=== PATIENT | male | born 1955 | race Caucasian/White ===

== ENCOUNTER 2024-11-19 11:37 | Emergency (ER) | payer OTHER, SELFPAY ==
[2024-11-19 11:47] VITALS: BP 138/73; PULSE 55; RESP 16; TEMP 36.6; O2SAT 99
--- NOTE | 2024-11-19 11:58 | ED.BACK ---
HPI - Back Pain/Injury General Chief Complaint: Back Pain/Injury Stated Complaint: middle of back pain Time Seen by Provider: 11/19/24 12:07 Source: patient and RN notes reviewed Mode of arrival: ambulatory Limitations: no limitations History of Present Illness HPI Narrative: 68-year-old male presents with concern for mid back pain. Reports this started 2 to 3 weeks ago and he has been taking [id number] pain reliever which temporarily makes the pain go away. Reports he can find a position comfort but certain movements or activities cause pain. He denies any direct injury or trauma. Reports he did have some increased activity including lifting up a motorcycle recently. He reports history of sciatic pain, he also had a crush injury 20 years ago that cause some nerve damage in his right lower extremity. He denies any change in weakness, sensation in his lower extremities. He denies loss of bowel or bladder function, perianal anesthesia, fever, he dysuria, frequency, urgency. Denies rash. MD elicited complaint: back pain Related Data Home Medications ?Medication ?Instructions ?Recorded ?Confirmed ?Last Taken ?Type aspirin 81 mg tablet,delayed 81 mg PO DAILY 09/23/19 11/19/24 Unknown History release (Kevin Low Dose Aspirin) atorvastatin 80 mg tablet 80 mg PO DAILY 09/23/19 11/19/24 Unknown History isosorbide mononitrate 30 mg 30 mg PO DAILY 09/23/19 11/19/24 Unknown History tablet,extended release 24 hr omeprazole 20 mg tablet,delayed 20 mg PO DAILY 09/23/19 11/19/24 Unknown History release Miralax 11/19/24 Unknown History levothyroxine 137 mcg tablet mcg 11/19/24 Unknown History rivaroxaban 2.5 mg tablet (Xarelto) mg 11/19/24 Unknown History Allergies Allergy/AdvReac Type Severity Reaction Status Date / Time Sulfa (Sulfonamide Allergy Unknown Unknown Verified 11/19/24 11:45 Antibiotics) Review of Systems Review of Systems: CONSTITUTIONAL: Denies malaise, chills, sweats, or fever. CARDIOVASCULAR: Denies chest pain, palpitations, or edema. RESPIRATORY: Denies cough or dyspnea. GASTROINTESTINAL: Denies abdominal pain, nausea, vomiting, diarrhea, loss of bowel function GENITOURINARY: Denies dysuria, hematuria, frequency, loss of bladder function. SKIN: Denies rash or itching. MUSCULOSKELETAL: Reports mid back pain NEUROLOGIC: Denies numbness, weakness, or headache. All systems reviewed & are unremarkable except as noted in HPI and below PMFSH Social History Social History (Updated 09/23/19 @ 10:49 by Ceci Rojas, VETERINARY ASSISTANT TECHNICIAN) Smoking status: Never smoker Comments At time of signature, agree with nursing past medical, surgical, social and family history. There is no relevant family history pertinent to the presenting complaint Exam Narrative: GENERAL: Well-appearing, well-nourished, and in no acute distress. HEAD: Normocephalic, atraumatic. EYES: PERRLA and EOMI. NECK: Supple. No lymphadenopathy. CHEST: Clear to auscultation. No respiratory distress. HEART: Regular rate and rhythm. Distal pulses palpable and equal, cap refill <3 seconds ABDOMEN: Soft, nontender, nondistended, normal active bowel sounds, no palpable or pulsatile masses. No CVA tenderness MUSCULOSKELETAL: Normal range of motion and strength in all extremities; 5/5 strength with hip flexion and extension, dorsiflexion and extension, knee flexion and extension, plantar flexion and extension. Baseline sensation in dermatomal distributions with sensitivity to light touch and pain. No midline back tenderness to palpation. No paraspinal tenderness. Transfers from sitting to standing. SKIN: Warm, dry, no rash. No ecchymosis, erythema, open wounds to back. NEURO: No focal deficits. Alert and oriented x3. Normal gait. PSYCH: Normal mood and affect Course Course Emergency Course: Patient is aware of diagnosis, understands and agrees to treatment plan. Anticipatory guidance given. Patient agrees to follow-up as directed and is aware of reasons to seek care at the emergency department. Portions of this record may have been created with voice recognition software Level of Care: Express Care Visit Vital Signs Vital signs: Vital Signs Temperature 97.9 F 11/19/24 11:47 Pulse Rate 55 L 11/19/24 11:47 Respiratory Rate 16 11/19/24 11:47 Blood Pressure 138/73 11/19/24 11:47 Pulse Oximetry 99 11/19/24 11:47 Oxygen Delivery Room Air 11/19/24 11:47 Temperature 97.9 F 11/19/24 11:47 Pulse Rate 55 L 11/19/24 11:47 Respiratory Rate 16 03/14/25 11:47 Blood Pressure 138/73 11/19/24 11:47 Pulse Oximetry 99 11/19/24 11:47 Oxygen Delivery Room Air 11/19/24 11:47 Reviewed. MDM - Back Pain/Injury MDM Narrative Medical decision making narrative: I evaluated this in the express care. History is obtained from patient who is an independent historian and physical exam was performed.? Available medical records were reviewed. ? Exam findings and relevant testing show no acute concerns or changes; patient is non-toxic appearing and is in no distress. No risk factors or findings concerning for epidural abscess, diskitis, vertebral osteomyelitis, cord compression, cauda equina, vertebral fracture or bone malignancy, AAA, or pyelonephritis. Patient instructed to consider further imaging and workup through their primary care physician as an outpatient if symptoms persist. ? Differential diagnosis and treatment plan were discussed with the patient. Patient agrees with discussion and after shared medical decision making agrees with plan of care. All questions were answered to the patient's satisfaction. Patient is appropriate for outpatient treatment and follow-up. Critical Care Time Critical Care Time Critical Care Time: No Discharge Plan Discharge Clinical Impression: Back pain Patient Disposition: Home, Self-Care Condition: Stable Instructions: Back Pain (ED) Additional Instructions: Please follow up with your Primary Care Doctor within 48-72 hours - call for an appointment. Walking and other gentle exercising several times a week has been shown to improve back pain; bed rest is not recommended. Take prednisone as prescribed, take muscle relaxers every 8 hours as needed for muscle spasm- do not drive or make any important decisions while on this medication for it can make you drowsy. You may apply ice to the area as needed. If you experience any worsening pain, swelling, numbness, weakness please go to ER. Contact your doctor or go to the emergency department if you develop problems with bladder or bowel function, weakness or loss of feeling in one or both of your legs, or any other serious concerns. Patient Language: Senegalese Prescriptions: New cyclobenzaprine 10 mg tablet 10 mg PO TID PRN (Reason: muscle spasm) Qty: 20 0RF prednisone 20 mg tablet 40 mg PO DAILY 5 Days Qty: 10 0RF No Action atorvastatin 80 mg Tablet 80 mg PO DAILY isosorbide mononitrate 30 mg Tablet Extended Release 24 Hr 30 mg PO DAILY aspirin [Kevin Low Dose Aspirin] 81 mg Tablet,Delayed Release (Dr/Ec) 81 mg PO DAILY omeprazole 20 mg Tablet,Delayed Release (Dr/Ec) 20 mg PO DAILY hydrocodone-acetaminophen [[place]] 5-325 mg tablet 1 tablet PO Q4H PRN (Reason: pain) Qty: 12 0RF levothyroxine 137 mcg tablet Xarelto 2.5 mg tablet Miralax Follow-up/Referrals: PHYSICIAN NOT ON STAFF,NONSTAFF [Primary Care Provider] -
--- OUTSIDE RECORDS SUMMARY | 2024-11-19 12:14 | XMS_ITS | Encounter Summary ---
Author Organization [email or web address] Address 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 Gender Identity Not on file Sexual Orientation Not on file documented as of this encounter Plan of Treatment Not on file documented as of this encounter Procedures Procedure Name Priority Date/Time Associated Diagnosis Comments CT ABDOMEN PELVIS WO CONTRAST Routine 10/06/2007 3:24 PM COLLECTOR OF AQUARIUM SPECIMENS documented in this encounter Results * CT ABDOMEN PELVIS WO CONTRAST (10/06/2007 3:24 PM COLLECTOR OF AQUARIUM SPECIMENS) Anatomical Region Laterality Modality Abdomen Other 10/06/2007 3:24 PM COLLECTOR OF AQUARIUM SPECIMENS Narrative 10/06/2007 3:53 PM COLLECTOR OF AQUARIUM SPECIMENS [address] [address] Admit Date: 10/06/2007 TRISTA HENRY Mary Sex: M Admit Prov: NASREEN VILLANUEVA Date: 1955 Primary Care Prov: CMRN: [id number] Room: [facility] SSN: [id number] IMAGING SERVICES Ordering Prov: N/A Accession Number: [id number] Interpretation CT abdomen and pelvis without contrast and 10/06/2007 History: Renal calculus Technique: Contiguous 5 mm unenhanced images were obtained through the abdomen and pelvis Findings: A punctate nonobstructive calculus in the upper pole of the left kidney is seen. There is a 7 mm nonobstructive calculus in the lower pole of the right kidney . A small exophytic lesion is seen from the lateral cortex of the right kidney which is isointense to the renal cortex. It probably represents a cyst with mild hemorrhage. The liver, spleen, pancreas and adrenal glands have unremarkable unenhanced appearance. No ureteral dilatation or calculus is seen. No bladder calculus is identified. There is no bowel obstruction. No intraperitoneal free fluid or free air is seen. No retroperitoneal lymphadenopathy is visualized. An IVC filter is noted. Remote pelvic fractures are noted with orthopedic hardware. Impression: 1. Bilateral nonobstructive renal calculi, larger on the right. 2. Small exophytic lesion from the right kidney. Further evaluation with ultrasound is recommended. . Dictated by: ANNETTE ORLANDO 10/06/2007 15:50 Electronically signed by: ANNETTE ORLANDO 10/06/2007 15:53 Procedure Note Annette Orlando - 10/07/2007 [facility] [address], [place] [address] Admit Date: 10/06/2007 HENRY PINO Sex: M Admit Prov: NASREEN VILLANUEVA Date: 1955 Primary Care Prov: CMRN: [id number] Room: [facility] SSN: [id number] IMAGING SERVICES Ordering Prov: N/A Interpretation CT abdomen and pelvis without contrast and 10/06/2007 History: Renal calculus Technique: Contiguous 5 mm unenhanced images were obtained throughthe abdomen and pelvis Findings: A punctate nonobstructive calculus in the upper pole of theleft kidney is seen. There is a 7 mm nonobstructive calculus in the lowerpole of the right kidney . A small exophytic lesion is seen from thelateral cortex of the right kidney which is isointense to the renal cortex.It probably represents a cyst with mild hemorrhage. The liver, spleen, pancreas and adrenal glands have unremarkable unenhanced appearance.No ureteral dilatation or calculus is seen. No bladder calculus isidentified. There is no bowel obstruction. No intraperitoneal free fluid or freeair is seen. No retroperitoneal lymphadenopathy is visualized. An IVC filteris noted. Remote pelvic fractures are noted with orthopedic hardware. Impression: 1. Bilateral nonobstructive renal calculi, larger on the right. 2. Small exophytic lesion from the right kidney. Further evaluationwith ultrasound is recommended. . Dictated by: ANNETTE ORLANDO 10/06/2007 15:50 Electronically signed by: ANNETTE ORLANDO 10/06/2007 15:53 us Nasreen Villanueva MD CT ORDERABLES Final Resu lt documented in this encounter Visit Diagnoses Diagnosis Calculus of kidney Unspecified disorder of kidney and ureter documented in this encounter Care Teams Air Quality Manager Relationship Specialty Start Date End Date Adriana Matamoros MD [address] [place] [id number] PCP - General 08/21/06 documented as of this encounter
--- OUTSIDE RECORDS SUMMARY | 2024-11-19 12:14 | XMS_ITS | Encounter Summary ---
Author Organization [employer] [facility] Address [address] [place] [address] Care Team Providers Care Fac Engineer Name Role Phone Adriana Matamoros MD Primary Care Provider [phone] Encounter Details Date Type Department Care Team (Late st Contact Info) Description 09/10/2005 Outpatient Historical [facility] [address] [place] [address] [place] [address] Adriana Matamoros MD [address] [place] [address] Social History Tobacco Use Types Packs/Day Years Used Date Smoking Tobacco: Never Assessed Sex and Gender Information Value Date Recorded Sex Assigned at Not on file 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
--- OUTSIDE RECORDS SUMMARY | 2024-11-19 12:14 | XMS_ITS | Encounter Summary ---
Author Organization [facility] Address 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
--- OUTSIDE RECORDS SUMMARY | 2024-11-19 12:14 | XMS_ITS | Encounter Summary ---
Author Organization [facility] Address [address] [place] [address] Phone Care Team Providers Care Professor Of Education Name Role Phone Amy Ojeda APRN, UNCRATER Unavailable Simón Tate MD Primary Care Provider [phone] Encounter Details Date Type Department Care Team (Late st Contact Info) Description 11/04/2024 Results Follow-Up [facility] - Gastroenterology - [place] [address] [place] [address] Amy Ojeda APRN, UNCRATER [address] [place] [address] Social History Tobacco Use Types Packs/Day Years Used Date Smoking Tobacco: Never Smokeless Tobacco: Never Alcohol Use Standard Drinks/Week Comments No 0 (1 standard drink = 0.6 oz pur e alcohol) Sex and Gender Information Value Date Recorded Sex Assigned at Not on file Legal Sex Male 12:34 AM CDT Gender Identity Not on file Sexual Orientation Not on file documented as of this encounter Plan of Treatment Not on file documented as of this encounter Visit Diagnoses Not on filedocumented in this encounter Care Teams Professor Of Education Relationship Specialty Start Date End Date Simón [place] [address] [place] [address] PCP - General Family Medicine 02/17/24 Amy Ojeda APRN, [place]CRATER [address] [place] [address] Nurse Practitioner Advanced Practice Nurse 12/02/23 documented as of this encounter
--- OUTSIDE RECORDS SUMMARY | 2024-11-19 12:14 | XMS_ITS | Encounter Summary ---
Author Organization [facility] Address 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
--- OUTSIDE RECORDS SUMMARY | 2024-11-19 12:14 | XMS_ITS | Clinical Summary ---
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 [address] [place] [address] PCP - General 08/21/06
--- OUTSIDE RECORDS SUMMARY | 2024-11-19 12:14 | XMS_ITS | Encounter Summary ---
Author Organization [employer] Address [address] [place] [address] Care Team Providers Care Plastic Roller Name Role Phone Adriana Matamoros MD Primary Care Provider [phone] Encounter Details Date Type Department Care Team (Latest Contact Info) Description 10/19/2004 Inpatient Historical HIS PATIENT IN A BED Adriana Matamoros MD [address] [place] [address] REHABILITATION PROC NEC (Primary Dx) Social History Tobacco Use Types Packs/Day Years Used Date Smoking Tobacco: Never Assessed Sex and Gender Information Value Date Recorded Sex Assigned at Not on file Legal Sex Male 3:48 AM LOSS PREVENTION MANAGER Gender Identity Not on file Sexual Orientation Not on file documented as of this encounter Plan of Treatment Not on file documented as of this encounter Procedures Procedure Name Priority Date/Time Associated Diagnosis Comments PROTIME-INR Routine 11/18/2004 4:30 AM LOSS PREVENTION MANAGER PROTIME-INR Routine 11/16/2004 5:05 AM LOSS PREVENTION MANAGER CBC WITH DIFFERENTIAL Routine 11/15/2004 5:37 AM LOSS PREVENTION MANAGER CBC WITH DIFFERENTIAL Routine 11/15/2004 5:37 AM LOSS PREVENTION MANAGER BASIC METABOLIC PANEL Routine 11/15/2004 5:37 AM LOSS PREVENTION MANAGER CBC WITH DIFFERENTIAL Routine 11/07/2004 5:00 AM LOSS PREVENTION MANAGER CBC WITH DIFFERENTIAL Routine 11/07/2004 5:00 AM LOSS PREVENTION MANAGER BASIC METABOLIC PANEL Routine 11/07/2004 5:00 AM LOSS PREVENTION MANAGER CBC WITH DIFFERENTIAL Routine 10/29/2004 4:26 AM LOSS PREVENTION MANAGER CBC WITH DIFFERENTIAL Routine 10/29/2004 4:26 AM LOSS PREVENTION MANAGER BASIC METABOLIC PANEL Routine 10/29/2004 4:26 AM LOSS PREVENTION MANAGER OCCULT BLOOD GUAIAC DIAGNOSTIC Routine 10/27/2004 9:33 AM LOSS PREVENTION MANAGER OCCULT BLOOD GUAIAC DIAGNOSTIC Routine 10/26/2004 5:53 PM LOSS PREVENTION MANAGER HEMOGLOBIN AND HEMATOCRIT Routine 10/25/2004 11:30 AM LOSS PREVENTION MANAGER IRON, TIBC, AND PERCENT SATURATION Routine 10/25/2004 11:30 AM LOSS PREVENTION MANAGER FOLATE RBC AND HEMATOCRIT Routine 10/25/2004 11:30 AM LOSS PREVENTION MANAGER VITAMIN B12 LEVEL Routine 10/25/2004 11: 30 AM LOSS PREVENTION MANAGER OCCULT BLOOD GUAIAC DIAGNOSTIC Routine 10/24/2004 10:30 PM LOSS PREVENTION MANAGER CBC WITH DIFFERENTIAL Routine 10/24/2004 4:40 AM LOSS PREVENTION MANAGER CBC WITH DIFFERENTIAL Routine 10/24/2004 4:40 AM LOSS PREVENTION MANAGER CBC WITH DIFFERENTIAL Routine 10/23/2004 5:00 AM LOSS PREVENTION MANAGER CBC WITH DIFFERENTIAL Routine 10/23/2004 5:00 AM LOSS PREVENTION MANAGER BASIC METABOLIC PANEL Routine 10/23/2004 5:00 AM LOSS PREVENTION MANAGER CBC WITH DIFFERENTIAL Routine 10/19/2004 4:00 PM LOSS PREVENTION MANAGER CBC WITH DIFFERENTIAL Routine 10/19/2004 4:00 PM LOSS PREVENTION MANAGER C-REACTIVE PROTEIN Routine 10/19/2004 4: 00 PM LOSS PREVENTION MANAGER COMPREHENSIVE METABOLIC PANEL Routine 10/19/2004 4:00 PM LOSS PREVENTION MANAGER URINALYSIS W/REFLEX MICROSCOPIC Routine 10/19/2004 2:32 PM LOSS PREVENTION MANAGER documented in this encounter Results * (ABNORMAL) PROTIME-INR (11/18/2004 4:30 AM LOSS PREVENTION MANAGER) PROTIME 16.4(H) 12.9 - 15.7 Seconds INTERFACE SYSTEM INR 1.2(H) 0.9 - 1.1 INTERFACE SYSTEM Comment: INR Therapeutic Range: Adult: 2.0 - 3.0 for pulmonary embolism or prophylaxis against venous thrombosis or systemic embolization. 2.0 - 3.0 for patients with tissue heart valves. 3.0 - 4.5 for patients with mechanical heart valves. Pediatric (12 years and under): 1.5 - 3.0 Although the target range in children is not well established, INR values of 1.5 - 3.0 are recommended for most patients. Higher values have been used in children with prosthetic cardiac valves and hereditary clotting disorders. (<3 days) therapeutic ranges have not been established. 11/18/2004 4:30 AM LOSS PREVENTION MANAGER us Adriana Matamoros MD HEMATOLOGY ORDERABLES Final R esult INTERFACE SYSTEM Refer to clinic/hospital department * PROTIME-INR (11/16/2004 5:05 AM LOSS PREVENTION MANAGER) PROTIME 14.8 12.9 - 15.7 Seconds INTERFACE SYSTEM INR 1.1 0.9 - 1.1 INTERFACE SYSTEM Comment: INR Therapeutic Range: Adult: 2.0 - 3.0 for pulmonary embolism or prophylaxis against venous thrombosis or systemic embolization. 2.0 - 3.0 for patients with tissue heart valves. 3.0 - 4.5 for patients with mechanical heart valves. Pediatric (12 years and under): 1.5 - 3.0 Although the target range in children is not well established, INR values of 1.5 - 3.0 are recommended for most patients. Higher values have been used in children with prosthetic cardiac valves and hereditary clotting disorders. (<3 days) therapeutic ranges have not been established. 11/16/2004 5:05 AM LOSS PREVENTION MANAGER Adriana Matamoros MD HEMATOLOGY ORDERABLES Final R [facility] Performing Organization Address [facility] Phone Number INTERFACE SYSTEM Refer to clinic/hospital department * CBC WITH DIFFERENTIAL (11/15/2004 5:37 AM LOSS PREVENTION MANAGER) NEUTROPHILS 68 45 - 70 % INTERFAC E SYSTEM LYMPHOCYTES 20 16 - 45 % INTERFAC E SYSTEM MONOCYTES 9 3 - 13 % INTERFACE SYSTEM EOSINOPHILS 3 0 - 7 % INTERFAC E SYSTEM BASOPHILS 1 0 - 2 % INTERFACE SYSTEM NEUTROPHIL ABSOLUTE 4.30 1.90 - 7.00 K/uL INTERFACE SYSTEM LYMPHOCYTE ABSOLUTE 1.25 0.70 - 4.50 K/uL INTERFACE SYSTEM MONOCYTE ABSOLUTE 0.58 0.10 - 1.30 K/uL INTERFACE SYSTEM EOSINOPHIL ABSOLUTE 0.16 0.00 - 0.70 K/uL INTERFACE SYSTEM BASOPHILS ABSOLUTE 0.03 0.00 - 0.20 K/uL INTERFACE SYSTEM 11/15/2004 5:37 AM LOSS PREVENTION MANAGER Adriana Matamoros MD HEMATOLOGY ORDERABLES Final R [facility] Performing Organization Address [facility] Phone Number INTERFACE SYSTEM Refer to clinic/hospital department * (ABNORMAL) CBC WITH DIFFERENTIAL (11/15/2004 5:37 AM LOSS PREVENTION MANAGER) WBC 6.3 4.0 - 9.8 K/uL INTERFACE SYSTEM RBC 3.60(L) 4.50 - 5.40 M/uL INTERFACE SYSTEM HEMOGLOBIN 10.2(L) 13.6 - 16.5 g/dL INTERFACE SYSTEM HEMATOCRIT 32.8(L) 40.0 - 48.0 % INTERFACE SYSTEM MCV 91.1 82.0 - 99.0 fL INTERFACE SYSTEM MCH 28.3 27.2 - 32.6 pg INTERFACE SYSTEM MCHC 31.1(L) 31.5 - 35.5 % INTERFACE SYSTEM RDW 14.8(H) 11.5 - 14.5 % INTERFACE SYSTEM RDW-STDEV 49.6(H) 37.1 - 48.7 fL INTERFACE SYSTEM PLATELETS 214 140 - 350 K/uL INTERFACE SYSTEM MPV 9.0(L) 9.3 - 12.4 fL INTERFACE SYSTEM 11/15/2004 5:37 AM LOSS PREVENTION MANAGER Adriana Matamoros MD HEMATOLOGY ORDERABLES Final R esult Performing Organization Address [facility] de Phone Number INTERFACE SYSTEM Refer to clinic/hospital department * BASIC METABOLIC PANEL (11/15/2004 5:37 AM LOSS PREVENTION MANAGER) GLUCOSE 105 65 - 109 mg/dL INTERFACE SYSTEM CREATININE 0.8 0.5 - 1.3 mg/dL INTERFACE SYSTEM CALCIUM 9.0 8.6 - 10.2 mg/dL INTERFACE SYSTEM BUN 13 6 - 20 mg/dL INTERFACE SYSTEM SODIUM 135 135 - 145 mmol/L INTERFACE SYSTEM POTASSIUM 3.9 3.5 - 4.9 mmol/L INTERFACE SYSTEM CHLORIDE 100 96 - 108 mmol/L INTERFACE SYSTEM CO2 28 22 - 30 mmol/L INTERFACE SYSTEM 11/15/2004 5:37 AM LOSS PREVENTION MANAGER Adriana Matamoros MD CHEMISTRY ORDERABLES Final Re sult Performing Organization Address [facility] Phone Number INTERFACE SYSTEM Refer to clinic/hospital department * CBC WITH DIFFERENTIAL (11/07/2004 5:00 AM LOSS PREVENTION MANAGER) NEUTROPHILS 56 45 - 70 % INTERFAC E SYSTEM LYMPHOCYTES 30 16 - 45 % INTERFAC E SYSTEM MONOCYTES 10 3 - 13 % INTERFACE SYSTEM EOSINOPHILS 3 0 - 7 % INTERFAC E SYSTEM BASOPHILS 1 0 - 2 % INTERFACE SYSTEM NEUTROPHIL ABSOLUTE 2.36 1.90 - 7.00 K/uL INTERFACE SYSTEM LYMPHOCYTE ABSOLUTE 1.29 0.70 - 4.50 K/uL INTERFACE SYSTEM MONOCYTE ABSOLUTE 0.44 0.10 - 1.30 K/uL INTERFACE SYSTEM EOSINOPHIL ABSOLUTE 0.12 0.00 - 0.70 K/uL INTERFACE SYSTEM BASOPHILS ABSOLUTE 0.04 0.00 - 0.20 K/uL INTERFACE SYSTEM 11/07/2004 5:00 AM LOSS PREVENTION MANAGER Adriana Matamoros MD HEMATOLOGY ORDERABLES Final R esult Performing Organization Address [facility] Phone Number INTERFACE SYSTEM Refer to clinic/hospital department * (ABNORMAL) CBC WITH DIFFERENTIAL (11/07/2004 5:00 AM LOSS PREVENTION MANAGER) WBC 4.3 4.0 - 9.8 K/uL INTERFACE SYSTEM RBC 3.69(L) 4.50 - 5.40 M/uL INTERFACE SYSTEM HEMOGLOBIN 10.5(L) 13.6 - 16.5 g/dL INTERFACE SYSTEM HEMATOCRIT 34.5(L) 40.0 - 48.0 % INTERFACE SYSTEM MCV 93.5 82.0 - 99.0 fL INTERFACE SYSTEM MCH 28.5 27.2 - 32.6 pg INTERFACE SYSTEM MCHC 30.4(L) 31.5 - 35.5 % INTERFACE SYSTEM RDW 15.2(H) 11.5 - 14.5 % INTERFACE SYSTEM RDW-STDEV 52.0(H) 37.1 - 48.7 fL INTERFACE SYSTEM PLATELETS 275 140 - 350 K/uL INTERFACE SYSTEM MPV 8.9(L) 9.3 - 12.4 fL INTERFACE SYSTEM 11/07/2004 5:00 AM LOSS PREVENTION MANAGER Adriana Matamoros MD HEMATOLOGY ORDERABLES Final R esult Performing Organization Address [facility] Phone Number INTERFACE SYSTEM Refer to clinic/hospital department * BASIC METABOLIC PANEL (11/07/2004 5:00 AM LOSS PREVENTION MANAGER) GLUCOSE 96 65 - 109 mg/dL INTERFACE SYSTEM CREATININE 0.9 0.5 - 1.3 mg/dL INTERFACE SYSTEM CALCIUM 9.1 8.6 - 10.2 mg/dL INTERFACE SYSTEM BUN 16 6 - 20 mg/dL INTERFACE SYSTEM SODIUM 140 135 - 145 mmol/L INTERFACE SYSTEM POTASSIUM 4.3 3.5 - 4.9 mmol/L INTERFACE SYSTEM CHLORIDE 102 96 - 108 mmol/L INTERFACE SYSTEM CO2 28 22 - 30 mmol/L INTERFACE SYSTEM 11/07/2004 5:00 AM LOSS PREVENTION MANAGER us Adriana Matamoros MD CHEMISTRY ORDERABLES Final Re sult Performing Organization Address [facility] Phone Number INTERFACE SYSTEM Refer to clinic/hospital department * CBC WITH DIFFERENTIAL (10/29/2004 4:26 AM LOSS PREVENTION MANAGER) Pathologist [facility] NEUTROPHILS 65 45 - 70 % INTERFAC E SYSTEM LYMPHOCYTES 24 16 - 45 % INTERFAC E SYSTEM MONOCYTES 8 3 - 13 % INTERFACE SYSTEM EOSINOPHILS 3 0 - 7 % INTERFAC E SYSTEM BASOPHILS 1 0 - 2 % INTERFACE SYSTEM NEUTROPHIL ABSOLUTE 4.17 1.90 - 7.00 K/uL INTERFACE SYSTEM LYMPHOCYTE ABSOLUTE 1.54 0.70 - 4.50 K/uL INTERFACE SYSTEM MONOCYTE ABSOLUTE 0.51 0.10 - 1.30 K/uL INTERFACE SYSTEM EOSINOPHIL ABSOLUTE 0.20 0.00 - 0.70 K/uL INTERFACE SYSTEM BASOPHILS ABSOLUTE 0.03 0.00 - 0.20 K/uL INTERFACE SYSTEM 10/29/2004 4:26 AM LOSS PREVENTION MANAGER us Adriana Matamoros MD HEMATOLOGY ORDERABLES Final R esult Performing Organization Address [facility] Phone Number INTERFACE SYSTEM Refer to clinic/hospital department * (ABNORMAL) CBC WITH DIFFERENTIAL (10/29/2004 4:26 AM LOSS PREVENTION MANAGER) Pathologist [facility] WBC 6.5 4.0 - 9.8 K/uL INTERFACE SYSTEM RBC 3.42(L) 4.50 - 5.40 M/uL INTERFACE SYSTEM HEMOGLOBIN 9.7(L) 13.6 - 16.5 g/dL INTERFACE SYSTEM HEMATOCRIT 31.6(L) 40.0 - 48.0 % INTERFACE SYSTEM MCV 92.4 82.0 - 99.0 fL INTERFACE SYSTEM MCH 28.4 27.2 - 32.6 pg INTERFACE SYSTEM MCHC 30.7(L) 31.5 - 35.5 % INTERFACE SYSTEM RDW 14.7(H) 11.5 - 14.5 % INTERFACE SYSTEM RDW-STDEV 49.5(H) 37.1 - 48.7 fL INTERFACE SYSTEM PLATELETS 389(H) 140 - 350 K/uL INTERFACE SYSTEM MPV 8.5(L) 9.3 - 12.4 fL INTERFACE SYSTEM 10/29/2004 4:26 AM LOSS PREVENTION MANAGER us Adriana Matamoros MD HEMATOLOGY ORDERABLES Final R esult Performing Organization Address [facility] de Phone Number INTERFACE SYSTEM Refer to clinic/hospital department * BASIC METABOLIC PANEL (10/29/2004 4:26 AM LOSS PREVENTION MANAGER) GLUCOSE 97 65 - 109 mg/dL INTERFACE SYSTEM CREATININE 0.7 0.5 - 1.3 mg/dL INTERFACE SYSTEM CALCIUM 9.0 8.6 - 10.2 mg/dL INTERFACE SYSTEM BUN 18 6 - 20 mg/dL INTERFACE SYSTEM SODIUM 136 135 - 145 mmol/L INTERFACE SYSTEM POTASSIUM 4.1 3.5 - 4.9 mmol/L INTERFACE SYSTEM CHLORIDE 100 96 - 108 mmol/L INTERFACE SYSTEM CO2 28 22 - 30 mmol/L INTERFACE SYSTEM 10/29/2004 4:26 AM LOSS PREVENTION MANAGER Result Vince Matamoros MD CHEMISTRY ORDERABLES Final Re sult Performing Organization Address [facility] Phone Number INTERFACE SYSTEM Refer to clinic/hospital department * OCCULT BLOOD, STOOL (10/27/2004 9:33 AM LOSS PREVENTION MANAGER) OCCULT BLOOD, STOOL Negative Negative INTERFACE SYSTEM 10/27/2004 9:33 AM LOSS PREVENTION MANAGER Result Vince Matamoros MD BODY FLUIDS AND STOOLS Final Result Performing Organization Address [facility] Phone Number INTERFACE SYSTEM Refer to clinic/hospital department * OCCULT BLOOD, STOOL (10/26/2004 5:53 PM LOSS PREVENTION MANAGER) OCCULT BLOOD, STOOL Negative Negative INTERFACE SYSTEM 10/26/2004 5:53 PM LOSS PREVENTION MANAGER Result Vince Matamoros MD BODY FLUIDS AND STOOLS Final Result Performing Organization Address [facility] Phone Number INTERFACE SYSTEM Refer to clinic/hospital department * (ABNORMAL) FOLATE RBC AND HEMATOCRIT (10/25/2004 11:30 AM LOSS PREVENTION MANAGER) HEMATOCRIT, FOLATE 30.3(L) 40.0 - 48.0 % INTERFACE SYSTEM RBC FOLATE 1095 >=341 ng/mL INTERFACE SYSTEM 10/25/2004 11:3 0 AM LOSS PREVENTION MANAGER Result Vince Matamoros MD CHEMISTRY ORDERABLES Final Re sult Performing Organization Address [facility] Phone Number INTERFACE SYSTEM Refer to clinic/hospital department * VITAMIN B12 (10/25/2004 11:30 AM LOSS PREVENTION MANAGER) VITAMIN B12 763 243 - 894 pg/mL INTERFACE SYSTEM Comment: It has been reported that between 5 to 10% of patients with values between 200 and 400 pg/mL may experience neuropsychiatric and hematologic abnormalities due to occult B12 deficiency. Less than 1% of patients with values above 400 pg/mL will have symptoms. 10/25/2004 11:3 0 AM LOSS PREVENTION MANAGER Adriana Matamoros MD CHEMISTRY ORDERABLES Final Re sult Performing Organization Address [facility] Phone [facility] INTERFACE SYSTEM Refer to clinic/hospital department * (ABNORMAL) HEMOGLOBIN AND HEMATOCRIT (10/25/2004 11:30 AM LOSS PREVENTION MANAGER) HEMOGLOBIN 9.3(L) 13.6 - 16.5 g/dL INTERFACE SYSTEM HEMATOCRIT 30.3(L) 40.0 - 48.0 % INTERFACE SYSTEM 10/25/2004 11:3 0 AM LOSS PREVENTION MANAGER Adriana Matamoros MD HEMATOLOGY ORDERABLES Final R esult Performing Organization Address [facility] Phone Number INTERFACE SYSTEM Refer to clinic/hospital department * (ABNORMAL) IRON AND TIBC (10/25/2004 11:30 AM LOSS PREVENTION MANAGER) IRON 50 45 - 160 ug/dL INTERFACE SYSTEM IRON % SATURATION 17(L) 20 - 50 % INTERFACE SYSTEM TIBC 286 250 - 450 ug/dL INTERFACE SYSTEM 10/25/2004 11:3 0 AM LOSS PREVENTION MANAGER Adriana Matamoros MD CHEMISTRY ORDERABLES Final Re sult Performing Organization Address [facility] Phone Number INTERFACE SYSTEM Refer to clinic/hospital department * OCCULT BLOOD, STOOL (10/24/2004 10:30 PM LOSS PREVENTION MANAGER) OCCULT BLOOD, STOOL Negative Negative INTERFACE SYSTEM 10/24/2004 10:3 0 PM LOSS PREVENTION MANAGER Adriana Matamoros MD BODY FLUIDS AND STOOLS Final Result Performing Organization Address [facility] de Phone Number INTERFACE SYSTEM Refer to clinic/hospital department * (ABNORMAL) CBC WITH DIFFERENTIAL (10/24/2004 4:40 AM LOSS PREVENTION MANAGER) NEUTROPHIL ABSOLUTE 6.69 1.90 - 7.00 K/uL INTERFACE SYSTEM LYMPHOCYTE ABSOLUTE 0.46(L) 0.70 - 4.50 K/uL INTERFACE SYSTEM MONOCYTE ABSOLUTE 0.38 0.10 - 1.30 K/uL INTERFACE SYSTEM EOSINOPHIL ABSOLUTE 0.08 0.00 - 0.70 K/uL INTERFACE SYSTEM BASOPHILS ABSOLUTE 0.00 0.00 - 0.20 K/uL INTERFACE SYSTEM NEUTROPHILS, SEG 88(H) 45 - 70 % INT ERFACE SYSTEM LYMPHOCYTES 6(L) 16 - 45 % INTERFAC E SYSTEM MONOCYTES 5 3 - 13 % INTERFACE SYSTEM EOSINOPHILS 1 0 - 7 % INTERFAC E SYSTEM BASOPHILS 0 0 - 2 % INTERFACE SYSTEM PLATELET EST. Slt. Increased( A) Normal INTERFACE SYSTEM ANISOCYTOSIS Slight INTERFA CE SYSTEM POIKILOCYTES Slight INTERFA CE SYSTEM 10/24/2004 4:40 AM LOSS PREVENTION MANAGER Adriana Matamoros MD HEMATOLOGY ORDERABLES Final R esult Performing Organization Address [facility] Phone Number INTERFACE SYSTEM Refer to clinic/hospital department * (ABNORMAL) CBC WITH DIFFERENTIAL (10/24/2004 4:40 AM LOSS PREVENTION MANAGER) WBC 7.6 4.0 - 9.8 K/uL INTERFACE SYSTEM RBC 3.10(L) 4.50 - 5.40 M/uL INTERFACE SYSTEM HEMOGLOBIN 8.7(L) 13.6 - 16.5 g/dL INTERFACE SYSTEM HEMATOCRIT 28.2(L) 40.0 - 48.0 % INTERFACE SYSTEM MCV 91.0 82.0 - 99.0 fL INTERFACE SYSTEM MCH 28.1 27.2 - 32.6 pg INTERFACE SYSTEM MCHC 30.9(L) 31.5 - 35.5 % INTERFACE SYSTEM RDW 13.9 11.5 - 14.5 % INTERFACE SYSTEM RDW-STDEV 46.1 37.1 - 48.7 fL INTERFACE SYSTEM PLATELETS 494(H) 140 - 350 K/uL INTERFACE SYSTEM MPV 8.3(L) 9.3 - 12.4 fL INTERFACE SYSTEM 10/24/2004 4:40 AM LOSS PREVENTION MANAGER Adriana Matamoros MD HEMATOLOGY ORDERABLES Final R esult Performing Organization Address [facility] de Phone Number INTERFACE SYSTEM Refer to clinic/hospital department * (ABNORMAL) CBC WITH DIFFERENTIAL (10/23/2004 5:00 AM LOSS PREVENTION MANAGER) NEUTROPHILS 74(H) 45 - 70 % INTERFAC E SYSTEM LYMPHOCYTES 14(L) 16 - 45 % INTERFAC E SYSTEM MONOCYTES 9 3 - 13 % INTERFACE SYSTEM EOSINOPHILS 2 0 - 7 % INTERFAC E SYSTEM BASOPHILS 0 0 - 2 % INTERFACE SYSTEM NEUTROPHIL ABSOLUTE 5.75 1.90 - 7.00 K/uL INTERFACE SYSTEM LYMPHOCYTE ABSOLUTE 1.12 0.70 - 4.50 K/uL INTERFACE SYSTEM MONOCYTE ABSOLUTE 0.72 0.10 - 1.30 K/uL INTERFACE SYSTEM EOSINOPHIL ABSOLUTE 0.15 0.00 - 0.70 K/uL INTERFACE SYSTEM BASOPHILS ABSOLUTE 0.02 0.00 - 0.20 K/uL INTERFACE SYSTEM 10/23/2004 5:00 AM LOSS PREVENTION MANAGER Adriana Matamoros MD HEMATOLOGY ORDERABLES Final R [facility] Performing Organization Address [facility] de Phone Number INTERFACE SYSTEM Refer to clinic/hospital department * (ABNORMAL) CBC WITH DIFFERENTIAL (10/23/2004 5:00 AM LOSS PREVENTION MANAGER) WBC 7.8 4.0 - 9.8 K/uL INTERFACE SYSTEM RBC 3.14(L) 4.50 - 5.40 M/uL INTERFACE SYSTEM HEMOGLOBIN 8.8(L) 13.6 - 16.5 g/dL INTERFACE SYSTEM HEMATOCRIT 28.6(L) 40.0 - 48.0 % INTERFACE SYSTEM MCV 91.1 82.0 - 99.0 fL INTERFACE SYSTEM MCH 28.0 27.2 - 32.6 pg INTERFACE SYSTEM MCHC 30.8(L) 31.5 - 35.5 % INTERFACE SYSTEM RDW 14.0 11.5 - 14.5 % INTERFACE SYSTEM RDW-STDEV 46.0 37.1 - 48.7 fL INTERFACE SYSTEM PLATELETS 523(H) 140 - 350 K/uL INTERFACE SYSTEM MPV 8.4(L) 9.3 - 12.4 fL INTERFACE SYSTEM 10/23/2004 5:00 AM LOSS PREVENTION MANAGER Adriana Matamoros MD HEMATOLOGY ORDERABLES Final R esult Performing Organization Address [facility] de Phone Number INTERFACE SYSTEM Refer to clinic/hospital department * (ABNORMAL) BASIC METABOLIC PANEL (10/23/2004 5:00 AM LOSS PREVENTION MANAGER) GLUCOSE 94 65 - 109 mg/dL INTERFACE SYSTEM CREATININE 0.8 0.5 - 1.3 mg/dL INTERFACE SYSTEM CALCIUM 8.8 8.6 - 10.2 mg/dL INTERFACE SYSTEM BUN 17 6 - 20 mg/dL INTERFACE SYSTEM SODIUM 132(L) 135 - 145 mmol/L INTERFACE SYSTEM POTASSIUM 4.0 3.5 - 4.9 mmol/L INTERFACE SYSTEM CHLORIDE 96 96 - 108 mmol/L INTERFACE SYSTEM CO2 27 22 - 30 mmol/L INTERFACE SYSTEM 10/23/2004 5:00 AM LOSS PREVENTION MANAGER Adriana Matamoros MD CHEMISTRY ORDERABLES Final Re sult Performing Organization Address [facility] Phone Number INTERFACE SYSTEM Refer to clinic/hospital department * (ABNORMAL) CBC WITH DIFFERENTIAL (10/19/2004 4:00 PM LOSS PREVENTION MANAGER) NEUTROPHILS 85(H) 45 - 70 % INTERFAC E SYSTEM LYMPHOCYTES 9(L) 16 - 45 % INTERFAC E SYSTEM MONOCYTES 6 3 - 13 % INTERFACE SYSTEM EOSINOPHILS 1 0 - 7 % INTERFAC E SYSTEM BASOPHILS 0 0 - 2 % INTERFACE SYSTEM NEUTROPHIL ABSOLUTE 10.77(H) 1.90 - 7.00 K/uL INTERFACE SYSTEM LYMPHOCYTE ABSOLUTE 1.14 0.70 - 4.50 K/uL INTERFACE SYSTEM MONOCYTE ABSOLUTE 0.71 0.10 - 1.30 K/uL INTERFACE SYSTEM EOSINOPHIL ABSOLUTE 0.09 0.00 - 0.70 K/uL INTERFACE SYSTEM BASOPHILS ABSOLUTE 0.02 0.00 - 0.20 K/uL INTERFACE SYSTEM 10/19/2004 4:00 PM LOSS PREVENTION MANAGER Adriana Matamoros MD HEMATOLOGY ORDERABLES Final R esult Performing Organization Address [facility]/ZIP Co de Phone Number INTERFACE SYSTEM Refer to clinic/hospital department * (ABNORMAL) CBC WITH DIFFERENTIAL (10/19/2004 4:00 PM LOSS PREVENTION MANAGER) WBC 12.7(H) 4.0 - 9.8 K/uL INTERFACE SYSTEM RBC 3.22(L) 4.50 - 5.40 M/uL INTERFACE SYSTEM HEMOGLOBIN 9.3(L) 13.6 - 16.5 g/dL INTERFACE SYSTEM HEMATOCRIT 29.7(L) 40.0 - 48.0 % INTERFACE SYSTEM MCV 92.2 82.0 - 99.0 fL INTERFACE SYSTEM MCH 28.9 27.2 - 32.6 pg INTERFACE SYSTEM MCHC 31.3(L) 31.5 - 35.5 % INTERFACE SYSTEM RDW 13.9 11.5 - 14.5 % INTERFACE SYSTEM RDW-STDEV 46.5 37.1 - 48.7 fL INTERFACE SYSTEM PLATELETS 528(H) 140 - 350 K/uL INTERFACE SYSTEM MPV 7.9(L) 9.3 - 12.4 fL INTERFACE SYSTEM 10/19/2004 4:00 PM LOSS PREVENTION MANAGER Adriana Matamoros MD HEMATOLOGY ORDERABLES Final R esult Performing Organization Address [facility] Co de Phone Number INTERFACE SYSTEM Refer to clinic/hospital department * (ABNORMAL) C-REACTIVE PROTEIN (10/19/2004 4:00 PM LOSS PREVENTION MANAGER) CRP 9.8(H) 0.0 - 0.8 mg/dL INTERFACE SYSTEM 10/19/2004 4:00 PM LOSS PREVENTION MANAGER Result [facility] Adriana Matamoros MD CHEMISTRY ORDERABLES Final Re sult Performing Organization Address [facility] Co de Phone Number INTERFACE SYSTEM Refer to clinic/hospital department * (ABNORMAL) COMPREHENSIVE METABOLIC PANEL (10/19/2004 4:00 PM LOSS PREVENTION MANAGER) GLUCOSE 113(H) 65 - 109 mg/dL INTERFACE SYSTEM CREATININE 0.8 0.5 - 1.3 mg/dL INTERFACE SYSTEM CALCIUM 8.7 8.6 - 10.2 mg/dL INTERFACE SYSTEM AST 33 12 - 38 U/L INTERFACE SYSTEM ALKALINE PHOSPHATASE 408(H) 40 - 129 U/L INTERFACE SYSTEM BUN 12 6 - 20 mg/dL INTERFACE SYSTEM BILIRUBIN TOTAL 1.2(H) 0.2 - 1.0 mg/dL INTERFACE SYSTEM ALBUMIN 3.2(L) 3.4 - 4.8 g/dL INTERFACE SYSTEM TOTAL PROTEIN 7.5 6.3 - 8.6 g/dL INTERFACE SYSTEM ALT 52(H) 0 - 41 U/L INTERFACE SYSTEM SODIUM 130(L) 135 - 145 mmol/L INTERFACE SYSTEM POTASSIUM 4.2 3.5 - 4.9 mmol/L INTERFACE SYSTEM CHLORIDE 93(L) 96 - 108 mmol/L INTERFACE SYSTEM CO2 28 22 - 30 mmol/L INTERFACE SYSTEM 10/19/2004 4:00 PM LOSS PREVENTION MANAGER Adriana Matamoros MD CHEMISTRY ORDERABLES Final Re sult Performing Organization Address [facility] Co de Phone Number INTERFACE SYSTEM Refer to clinic/hospital department * (ABNORMAL) URINALYSIS (10/19/2004 2:32 PM LOSS PREVENTION MANAGER) COLOR UA Yellow INTERFACE SYSTEM CLARITY UA Cloudy(A) Clear INTERFACE SYSTEM SPECIFIC GRAVITY UA 1.015 1.001 - 1.035 INTERFACE SYSTEM PH UA 7.5 5.0 - 8.0 INTERFACE SYSTEM LEUKOCYTE ESTERASE UA 1+(A) Negative INTERFACE SYSTEM NITRITE UA Negative Negative INTERFACE SYSTEM PROTEIN UA Negative Negative INTERFACE SYSTEM GLUCOSE UA Negative Negative INTERFACE SYSTEM KETONES UA Negative Negative INTERFACE SYSTEM UROBILINOGEN UA 1 <=1 EU INTE RFACE SYSTEM BILIRUBIN UA Negative Negative INTERFA CE SYSTEM BLOOD UA Negative Negative INTERFACE SYSTEM WBC UA 27(H) 0 - 3 /HPF INTERFACE SYSTEM EPITHELIAL CELLS, URINE 0-2 /HPF INTERFACE SYSTEM AMORPHOUS CRYSTAL Few /HPF INTERFACE SYSTEM 10/19/2004 2:32 PM LOSS PREVENTION MANAGER Adriana Matamoros MD URINE ORDERABLES Final Result Performing Organization Address [facility]/ZIP Co de Phone Number INTERFACE SYSTEM Refer to clinic/hospital department documented in this encounter Visit Diagnoses Diagnosis Other specified rehabilitation procedure(V57.89)- Primary Other specified rehabilitation procedure documented in this encounter Care Teams Plastic Roller Relationship Specialty Start Date End Date Adriana Matamoros MD [address] [place] [address] PCP - General 08/21/06 documented as of this encounter
--- OUTSIDE RECORDS SUMMARY | 2024-11-19 12:14 | XMS_ITS | Encounter Summary ---
Author Organization [facility] Address [address] [place] [address] Care Team Providers Care Singe Winder Name Role Phone Adriana Matamoros MD Primary Care Provider [phone] Encounter Details Date Type Department Care Team (Latest Contact Info) Description 03/20/2007 Outpatient Historical [facility] JOSE MANUEL Villanueva, Percy Reza MD NO ADDRESS ON FILE Calculus of Kidney (Primary Dx) Social History Tobacco Use Types Packs/Day Years Used Date Smoking Tobacco: Never Assessed Sex and Gender Information Value Date Recorded Sex Assigned at Not on file Legal Sex Male 3:48 AM MANAGER LINE Gender Identity Not on file Sexual Orientation Not on file documented as of this encounter Plan of Treatment Not on file documented as of this encounter Visit Diagnoses Diagnosis Calculus of kidney- Primary documented in this encounter Care Teams Singe Winder Relationship Specialty Start Date End Date Adriana Matamoros MD [address] [place] [id number] PCP - General 08/21/06 documented as of this encounter
--- OUTSIDE RECORDS SUMMARY | 2024-11-19 12:14 | XMS_ITS | Referral Summary ---
Author Organization [facility] [employer] Address [address] [place] [address] Care Team Providers Care Embedded Systems Engineer Name Role Phone Gee Mckeon MD Primary Care Provider [phone] Source Comments [facility] [employer],non-owned Affiliates and Associated Physician Practices is amultiple site organization consisting of ambulatory clinics and hospital sitesin [place] and [place]. This disclosure is being madepursuant to the Care Everywhere program and may not contain all information available regarding this patient. Last updated 18.[facility] [employer] Allergies Active Allergy Reactions Criticality Noted Date Comments Sulfa Drugs Rash Medium 02/06/2022 Medications * Be aware that medications may not be up to date on this document. Alwaysverify current medications with the patient. Medication Sig Dispensed Refills Start Date End Date Status atorvastatin (LIPITOR) 80 MG tablet Take 80 mg by mouth at bedtime Active isosorbide mononitrate CR 24hr (IMDUR) 30 MG tablet Take 30 mg by mouth once daily Active gabapentin (NEURONTIN) 100 MG capsule Take 100 mg by mouth 3 times daily Active rivaroxaban (XARELTO) 2.5 MG TABS tablet Take 2.5 mg by mouth 2 times daily Active tamsulosin (FLOMAX) 0.4 MG capsule Take 0.4 mg by mouth once daily At the same time every day after a meal. Active omeprazole (PRILOSEC) 40 MG capsule Take 40 mg by mouth daily before breakfast Active furosemide (LASIX) 20 MG tablet Take 20 mg by mouth once daily Active aspirin EC (ECOTRIN) 81 MG tablet Take 81 mg by mouth once daily Active nitroGLYCERIN (NITROSTAT) 0.4 MG tablet Dissolve 0.4 mg under the tongue every 5 minutes as needed for Angina Active Social History Tobacco Use Types Packs/Day Years Used Date Smoking Tobacco: Never Smokeless Tobacco: Never Alcohol Use Standard Drinks/Week Comments Not Currently 0 (1 standard drink = 0.6 oz pur e alcohol) Sex and Gender Information Value Date Recorded Sex Assigned at Not on file Gender Identity Not on file Sexual Orientation Not on file Last Filed Vital Signs Vital Sign Reading Time Taken Comments Blood Pressure 116/60 02/06/2022 9:36 AM CDT Pulse 55 02/06/2022 9:36 AM CDT Temperature - - Respiratory Rate 18 02/06/2022 9:36 AM CDT Oxygen Saturation 96% 02/06/2022 9:36 AM CDT Inhaled Oxygen Concentration - - Weight 93.9 kg (207 lb) 02/06/2022 9:36 AM CDT Height 168.9 cm (5' 6.5 ) 02/06/2022 9:36 AM CDT Body Mass Index 32.91 02/06/2022 9:36 AM CDT Plan of Treatment Not on file Care Teams Embedded Systems Engineer Relationship Specialty Start Date End Date Gee Mckeon MD [address] [facility] [address] [place] [address] [place] [address] PCP - General Internal Medicine 02/06/22
--- OUTSIDE RECORDS SUMMARY | 2024-11-19 12:14 | XMS_ITS | Encounter Summary ---
Author Organization [employer] Address [address] [place] [address] Care Team Providers Care Youth Care Specialist Name Role Phone Adriana Matamoros MD Primary Care Provider [phone] Encounter Details Date Type Department Care Team (Late st Contact Info) Description 10/19/[address] [facility] [address] 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
--- OUTSIDE RECORDS SUMMARY | 2024-11-19 12:14 | XMS_ITS | Encounter Summary ---
Author Organization [facility] Address 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
--- OUTSIDE RECORDS SUMMARY | 2024-11-19 12:14 | XMS_ITS | Clinical Summary ---
Author Organization [facility] Address [address] [place] [place] [address] Care Team Providers Care Collection Development Librarian Name Role Phone Gee Mckeon MD Primary Care Provider [phone] Source Comments [facility],non-owned Affiliates and Associated Physician Practices is amultiple site organization consisting of ambulatory clinics and hospital sitesin [place], [place] and [place]. This disclosure is being madepursuant to the Care Everywhere program and may not contain all information available regarding this patient. Last updated 18.[facility] Allergies Active Allergy Reactions Criticality Noted Date [...] 5 minutes as needed for Angina Active Family History Medical History Relation Name Comments CAD (Coronary Artery Disease) Father Relation Name Status Comments Father Social History Tobacco Use Types Packs/Day Years [...] 02/06/2022 9:36 AM CDT Plan of Treatment Health Maintenance Due Date Last Done Comments COLOGUARD (AGES 45-75) - COL ON CA SCREENING 1957 COLON MONITORING 1957 COLONOSCOPY - COLON CA SCREENING 1957 CT COLONOGRAPHY - COLON CA SCREENING 1957 Colorectal Cancer Screening 1957 FIT - COLON CA SCREENING 1957 FLEX SIG - COLON CA SCREENING 1957 HEPATITIS C SCREENING 12/25/1975 DTAP/TDAP/TD VACCINES (1 - Tdap) 1976 PNEUMOCOCCAL VACCINE 50+ (1 of 1 - PCV) 12/30/2007 ZOSTER VACCINE (1 of 2) 12/30/2007 COVID-19 VACCINE ( - 2023-2 5 season) 2024 INFLUENZA VACCINE (#1) 2024 DEPRESSION SCREENING 09/08/2024 Respiratory Syncytial Virus (RSV) Vaccine Pt: or over 60 yrs (1 - 1-dose 75+ series) 2032 HEPATITIS B VACCINE Aged Out No longe r eligible based on patient's age to complete this topic HIB VACCINE Aged Out No longer eligi ble based on patient's age to complete this topic HPV VACCINE Aged Out No longer eligi ble based on patient's age to complete this topic MENINGOCOCCAL (Group B) VACC INE SHARED DECISION-MAKING Aged Out No longer eligibl e based on patient's age to complete this topic MENINGOCOCCAL GROUPS A/C/Y/W VACCINE Aged Out No longer eligible b ased on patient's age to complete this topic Care Teams Collection Development Librarian Relationship Specialty Start Date End Date Gee Mckeon MD [address] [facility] [address] [address] PCP - General Internal Medicine 02/06/22
--- OUTSIDE RECORDS SUMMARY | 2024-11-19 12:14 | XMS_ITS | Encounter Summary ---
Author Organization [employer] Address 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
--- OUTSIDE RECORDS SUMMARY | 2024-11-19 12:14 | XMS_ITS | Referral Summary ---
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 revised 22. Blood 10/06/2023 11:4 4 AM CELL RELINER 10/06/2023 1:25 PM CELL RELINER Gee Mckeon MD LAB BLOOD ORDERABLES Final R esult Performing Organization Address City/[facility]/ZIP Co de Phone Number GEOFF QUINTEROS ([place]) 1 [facility] [place] [address] * Hepatitis C (HCV) RNA PCR, quantitative (02/11/2020 9:05 AM CDT) [facility] HCV RNA result Not Detected CE SANDRA QUINTEROS ([place]) Comment: Interpretive data: The quantifiable range of this assay is 15 IU/mL to 100,000,000 IU/mL (1.18 log IU/mL to 8.00 log IU/mL). Testing was performed by the WIL[employer]ED AmpliPrep/WILFRED TaqMan HCV Test version 2.0 ([employer] Testing performed at [facility] Current Interpretive Data was last revised on 2015. Testing performed by: [facility], [address] [place]., [address] Blood specimen (specimen) 02/11/2020 9:05 AM CDT 02/11/2020 1:25 PM CDT us Gee Mckeon MD LAB MICROBIOLOGY - GENERAL O RDERABLES Final Result GEOFF QUINTEROS ([place]) 1 [facility] [place] [address] from Last 3 Months or Most Recently Relevant to Health Maintenance Insurance [employer] PPO [employer] PPO Advance Directives For more information, please contact: [phone] Documents on File Type Date Recorded Patient Grocery Manager Expl anation ADVANCE DIRECTIVE 06/01/2018 9:02 PM * Full Code (Latest Code Status on File) Date Activated Date Inactivated Comments 03/04/2023 3:51 PM 03/05/2023 6:34 PM Care Teams Cost Consultant Relationship Specialty Start Date End Date Simón Tate MD [address] [place] [address] PCP - General Family Medicine 12/17/23 Ajay Mariee NP [address] [place] [address] [place] [address] Nurse Practitioner Nurse Practitioner 03/05/23
--- OUTSIDE RECORDS SUMMARY | 2024-11-19 12:14 | XMS_ITS | Encounter Summary ---
Author Organization [facility] Address [address] [place] [address] Care Team Providers Care Graining Machine Operator Name Role Phone Adriana Matamoros MD Primary Care Provider Encounter Details Date Type Department Care Team (Latest Contact Info) Description 08/21/2006 Outpatient Historical [facility] Percy Villanueva MD NO ADDRESS ON FILE Hematuria (Primary Dx) Social History Tobacco Use Types Packs/Day Years Used Date Smoking Tobacco: Never Assessed Sex and Gender Information Value Date Recorded Sex Assigned at Not on file Legal Sex Male 3:48 AM ACCOUNT DEVELOPMENT ASSOCIATE Gender Identity Not on file Sexual Orientation Not on file documented as of this encounter Plan of Treatment Not on file documented as of this encounter Visit Diagnoses Diagnosis Hematuria- Primary documented in this encounter Care Teams Graining Machine Operator Relationship Specialty Start Date End Date Adriana Matamoros MD [address] [place] [address] PCP - General 08/21/06 documented as of this encounter
--- OUTSIDE RECORDS SUMMARY | 2024-11-19 12:14 | XMS_ITS | Encounter Summary ---
Author Organization [facility] Address [address] [place] [address] Care Team Providers Care Cattle Broker Name Role Phone Adriana Matamoros MD Primary Care Provider [phone] Encounter Details Date Type Department Care Team (Late st Contact Info) Description 10/10/2007 Outpatient Historical [facility] Nasreen Villanueva MD NO ADDRESS ON FILE Unspecified Disorder of Kidney and Ureter Social History Tobacco Use Types Packs/Day Years Used Date Smoking Tobacco: Never Assessed Sex and Gender Information Value Date Recorded Sex Assigned at Not on file Legal Sex Male 3:48 AM RN NEUROSURGICAL Gender Identity Not on file Sexual Orientation Not on file documented as of this encounter Plan of Treatment Not on file documented as of this encounter Procedures Procedure Name Priority Date/Time Associated Diagnosis Comments US RETROPERITONEAL COMPLETE Routine 10/10/2007 10:33 AM RN NEUROSURGICAL documented in this encounter Results * US RETROPERITONEAL COMPLETE (10/10/2007 10:33 AM RN NEUROSURGICAL) Anatomical Region Laterality Modality Pelvis Other 10/10/2007 10:3 3 AM RN NEUROSURGICAL Narrative 10/10/2007 3:31 PM RN NEUROSURGICAL [address] [address] Admit Date: 10/10/2007 TRISTA HENRY Mary Sex: M Admit Prov: NASREEN VILLANUEVA Date: 1955 Primary Care Prov: CMRN: [id number] Room: [facility] SSN: [id number] IMAGING SERVICES Ordering Prov: N/A Accession Number: [id number] Interpretation RENAL ULTRASOUND, 10/10/2007 History: Renal insufficiency. Findings: The right kidney is 11.6 cm. The left kidney is 12.8 cm. Kidneys have normal size, contour and echotexture. There is a 1.7 cm right upper pole renal cyst. There is no hydronephrosis. A 5 mm calculus is noted in the lower pole of the right kidney. There is suggestion of a small left renal calculus. There is no hydronephrosis. No free pelvic fluid is present. Bladder is normal. Impression: 1. Small right renal cyst. 2. Right nephrolithiasis and probable left nephrolithiasis but no evidence of urinary obstruction. . Dictated by: JEREMY BROWNE 10/10/2007 11:03 Electronically signed by: JEREMY BROWNE 10/10/2007 15:31 Transcribed: 10/10/2007 13:36 SMM Procedure Note Jeremy Browne - 10/10/2007 [id number] [place], [place] [address] Admit Date: 10/10/2007 HENRY PINO Sex: M Admit Prov: NASREEN VILLANUEVA Date: 1955 Primary Care Prov: CMRN: [id number] Room: [facility] SSN: [id number] IMAGING SERVICES Ordering Prov: N/A Interpretation RENAL ULTRASOUND, 10/10/2007 History: Renal insufficiency. Findings: The right kidney is 11.6 cm. The left kidney is 12.8 cm.Kidneys have normal size, contour and echotexture. There is a 1.7 cm rightupper pole renal cyst. There is no hydronephrosis. A 5 mm calculus is notedin the lower pole of the right kidney. There is suggestion of a smallleft renal calculus. There is no hydronephrosis. No free pelvic fluid is present. Bladder is normal. Impression: 1. Small right renal cyst. 2. Right nephrolithiasis and probable left nephrolithiasis but noevidence of urinary obstruction. . Dictated by: JEREMY BROWNE 10/10/2007 11:03 Electronically signed by: JEREMY BROWNE 10/10/2007 15:31 Transcribed: 10/10/2007 13:36 SMM Nasreen Villanueva MD ORDERABLES Final Resu lt documented in this encounter Visit Diagnoses Diagnosis Unspecified disorder of kidney and ureter documented in this encounter Care Teams Cattle Broker Relationship Specialty Start Date End Date Adriana Matamoros MD [address] [place] [address] PCP - General 08/21/06 documented as of this encounter
--- OUTSIDE RECORDS SUMMARY | 2024-11-19 12:14 | XMS_ITS | Clinical Summary ---
Author Organization [facility] Address [address] [address] Phone Care Team Providers Care Imaging Administrator Name Role Phone Amy Ojeda APRN, FACILITIES LOCATOR Unavailable Simón Tate MD Primary Care Provider [phone] Allergies Active Allergy Reactions Criticality Noted Date Comments Cheese Hives Medium 10/14/2023 Pepper Yousif cheese only Sulfa Antibiotics Rash,Hives Medium 07/29/2016 Reaction: Hives, Medications levothyroxine (SYNTHROID) 137 MCG Tablet Take 150 mcg by mouth daily. 6 Active omeprazole (PRILOSEC) 20 MG CAPSULE DELAYED RELEASE Take 20 mg by mouth daily. 6 Active HYDROcodone-duc taminophen (NORCO) 5-325 MG Tablet Take 1-2 Tabs by mouth every 6 hours as needed. 40 Tab 0 6 Active Additional Information Patient not taking.Reported on 10/29/2024 docusate sodium (COLACE) 100 MG Capsule Take 1 Cap by mouth 2 times daily as needed for Constipation. 180 Cap 3 6 Active Additional Information Patient not taking.Reported on 10/29/2024 atorvastatin (LIPITOR) 80 MG Tablet Take 1 Tablet by mouth daily. 3 Active aspirin EC 81 MG Tablet Delayed Response Take 81 mg by mouth. 3 Active ascorbic acid 500 MG Tablet Take 500 mg by mouth. 3 Active isosorbide mononitrate (IMDUR) 30 MG TABLET SR 24 HR Take 1 Tablet by mouth daily. 4 Active traMADol (ULTRAM) 50 MG Tablet Take 50 mg by mouth every 8 hours as needed. 3 Active Rivaroxaban (Xarelto) 2.5 MG Tablet Take 1 Tablet by mouth 2 times daily. 2 Active Cyanocobalamin (VITAMIN B12 PO) Take by mouth daily. Active nitroGLYCERIN (NITROSTAT) 0.4 MG SL Tablet 7 Active Fiber Select Gummies Chewable Tablet Take by mouth. Active amoxicillin-cla vulanate (AUGMENTIN) 875-125 MG TabletIndicatio ns:Bowel habit changes Take 1 Tablet by mouth 2 times daily for 10 days. 20 Tablet 5 11/09/19 25 Active Problems No known active problems Encounters Date Type Department Care Team Description 11/09/2024 Telephone [facility] Gastroenterology [facility] [address] [place] [phone] Amy Ojeda APRN, CNP Medication Management 11/04/2024 Results Follow-Up [facility] Gastroenterology [facility] [address] [place] [id number] Amy Ojeda APRN, CNP 10/29/2024 11:01 AM WAREHOUSE SHIFT SUPERVISOR - 10/29/2024 11:59 PM WAREHOUSE SHIFT SUPERVISOR Hospital [facility] [address] [place] [phone] Amy Ojeda APRN, CNP Discharge Disposition: Discharged to home or Selfcare 10/29/2024 10:00 AM WAREHOUSE SHIFT SUPERVISOR Office Visit [facility] Gastroenterology [facility] [address] [place] [phone] Schrumpf, Amy A, INSEMINATION WORKER, FACILITIES LOCATOR Bowel habit changes (Primary Dx); Flatulence; Abdominal bloating Discharge Disposition: Discharged to home or Selfcare 10/29/2024 Travel from Last 3 Months Family History Medical History Relation Name Comments Heart Attack Father Heart Disease Father Diabetes Mother Relation Name Status Comments Father Mother Alive Social History Tobacco Use Types Packs/Day Years Used Date Smoking Tobacco: Never Smokeless Tobacco: Never Tobacco Cessation:Counseling Given: Not Answered Alcohol Use Standard Drinks/Week Comments No 0 (1 standard drink = 0.6 oz pur e alcohol) Sex and Gender Information Value Date Recorded Sex Assigned at Not on file Legal Sex Male 12:34 AM CDT Gender Identity Not on file Sexual Orientation Not on file Last Filed Vital Signs Vital Sign Reading Time Taken Comments Blood Pressure 132/78 10/29/2024 10:05 AM WAREHOUSE SHIFT SUPERVISOR Pulse 52 10/29/2024 10:05 AM WAREHOUSE SHIFT SUPERVISOR Temperature 36.6 C (97.8 F) 10/29/2024 10:05 AM WAREHOUSE SHIFT SUPERVISOR Respiratory Rate 16 10/29/2024 10:05 AM WAREHOUSE SHIFT SUPERVISOR Oxygen Saturation 99% 10/29/2024 10:05 AM WAREHOUSE SHIFT SUPERVISOR Inhaled Oxygen Concentration - - Weight 94.8 kg (209 lb) 10/29/2024 10:05 AM WAREHOUSE SHIFT SUPERVISOR Height 167.6 cm (5' 6 ) 10/29/2024 10:05 AM WAREHOUSE SHIFT SUPERVISOR Body Mass Index 33.73 10/29/2024 10:05 AM WAREHOUSE SHIFT SUPERVISOR Plan of Treatment Health Maintenance Due Date Last Done Comments Hepatitis C Virus (HCV) Screening 1955 Cologuard 12/30/2007 Immunochemical Fecal Occult Blood 12/30/2007 Zoster Immunization (1 of 2) 12/30/2007 PSA Discussion 2012 Influenza Immunization (#1) 2024 SARS-COV-2 Immunization (2023- season) 2024 04/30/2021, 04/09/2021 Respiratory Syncytial Virus (RSV) Immunization (Adult) (1 - 1-dose 75+ series) 2032 Colonoscopy 02/16/2034 02/17/2024, 02/17/2024 Colorectal Cancer Screening 02/16/2034 02/17/2024, 02/17/2024 DTaP/Tdap/Td Immunization Discontinued 2014, 09/08/2004 TdaP Immunization Completed 03/27/2015 Pneumococcal Immunization (5 0+ years) Completed 10/14/2023 Pneumococcal Immunization Combined Discontinued 10/14/2023 Hepatitis B Immunization Aged Out No longer eligible based on patient's age to complete this topic Meningococcal Immunization (ACWY) Aged Out No longer eligible based on patient's age to complete this topic Rotavirus Immunization Aged Out No lo nger eligible based on patient's age to complete this topic Procedures Procedure Name Priority Date/Time Associated Diagnosis Comments XR ABDOMEN KUB FLAT PLATE Routine 10/29/2024 11:27 AM WAREHOUSE SHIFT SUPERVISOR Bowel habit changes from Last 3 Months Results * XR ABDOMEN KUB FLAT PLATE (10/29/2024 11:27 AM WAREHOUSE SHIFT SUPERVISOR) Anatomical Region Laterality Modality Abdomen N/A Digital Radiogra phy 11/03/2024 4:16 PM WAREHOUSE SHIFT SUPERVISOR Impressions 11/03/2024 4:18 PM WAREHOUSE SHIFT SUPERVISOR IMPRESSION: 1. There is a nonobstructed bowel-gas pattern. 2. Additional findings as above. Narrative 11/03/2024 4:18 PM WAREHOUSE SHIFT SUPERVISOR EXAM DESCRIPTION: XR ABDOMEN KUB FLAT PLATE REASON FOR STUDY: irregular bowel movements, diarrhea x 2-3 years. denies pain with urination, nausea/vomiting. Hx of pelvis Fx, skin cancer, inguinal hernia TECHNIQUE: A total of 2 frontal radiographic view of the abdomen. COMPARISON: None available. FINDINGS: Please note the extreme lateral margin of the left hemiabdomen is not imaged on this study. Elsewhere there are gas-filled loops of large and small bowel. A gas containing loop of bowel overlies the pelvis. Moderate to large amount of stool projects over the right and left hemiabdomen and pelvis. Multiple screws project over the right and left sacroiliac joints/sacrum. There are vascular calcifications. Tiny radiopaque focus projecting in the medial margin of the left hemiabdomen could be bowel debris, summation artifact or other radiopaque density. Note made of an IVC filter. Recommend assessment of the IVC filter management plan, and if not currently established, nonemergent patient referral to an interventional clinician for further evaluation. THIS IS AN ELECTRONICALLY VERIFIED FINAL REPORT 11/03/2024 4:16 PM - Electronically signed by Srinivas Johnson D.O. AP: AP Report ID: [id number] Reading Location: [id number] Procedure Note Srinivas Johnson DO - 11/03/2024 EXAM DESCRIPTION: XR ABDOMEN KUB FLAT PLATE REASON FOR STUDY: irregular bowel movements, diarrhea x 2-3 years. denies pain with urination, nausea/vomiting. Hx of pelvis Fx, skin cancer, inguinal hernia TECHNIQUE: A total of 2 frontal radiographic view of the abdomen. COMPARISON: None available. FINDINGS: Please note the extreme lateral margin of the left hemiabdomen is not imaged on this study. Elsewhere there are gas-filled loops of large and small bowel. A gas containing loop of bowel overlies the pelvis. Moderate to large amount of stool projects over the right and left hemiabdomen and pelvis. Multiple screws project over the right and left sacroiliac joints/sacrum. There are vascular calcifications. Tiny radiopaque focus projecting in the medial margin of the left hemiabdomen could be bowel debris, summation artifact or other radiopaque density. Note made of an IVC filter. Recommend assessment of the IVC filter management plan, and if not currently established, nonemergent patient referral to an interventional clinician for further evaluation. THIS IS AN ELECTRONICALLY VERIFIED FINAL REPORT 11/03/2024 4:16 PM - Electronically signed by Srinivas Johnson D.O. AP: AP Report ID: [id number] Reading Location: [id number] IMPRESSION: 1. There is a nonobstructed bowel-gas pattern. 2. Additional findings as above. Amy Ojeda INSEMINATION WORKER, FACILITIES LOCATOR IMG DIAGNOSTIC OR DERABLES Final Result from Last 3 Months Insurance MEDICARE C [employer] Care Teams Imaging Administrator Relationship Specialty Start Date End Date Simón Tate MD [address] [place] [address] PCP - General Family Medicine 02/17/24 Amy Ojeda APRN, FACILITIES LOCATOR [address] [place] [address] Nurse Practitioner Advanced Practice Nurse 12/02/23
--- OUTSIDE RECORDS SUMMARY | 2024-11-19 12:14 | XMS_ITS | Continuity of Care Document ---
Author Organization [facility] Address [place], [place] [address] Care Team Providers Care Plush Finisher Name Role Phone Adriana Matamoros MD Unavailable Unavailable Allergies, Adverse Reactions, Alerts Substance Reaction Status Criticality Sulfa (Sulfonamide Antibiotics) Active No Information Medications Medication Instructions Dosage Effective Dates (start - stop) Status Comments tramadol 50 mg tablet take 1 tablet by oral route every 6 hours as needed 50 MG - Active SYNTHROID (unknown strength) Not Available - Active PANTOPRAZOLE SODIUM (unknown strength) Not Available - Active Procedures Procedure Date OFFICE/OUTPATIENT VISIT NEW Advance Directives Directive Yes / No Effective Date File Name No Information Encounters Encounter Description Practice Location Reason(s) For Visit Diagnoses Date Provider Providers Copied on Encounter OFFICE/OUTPA TIENT VISIT [facility], [place], [address], [facility] Right foot dropClosed nondisplaced fracture of pelvis, unspecified part of pelvis, sequelaBilate ral low back pain with right-sided sciatica -[address], [place], [place], [id number] . tel:[phone] Family History Family Member Type Diagnosis Age At Onset No Information Payers Payer name Insurance type Covered constitution party ID Authoriza tiashu(s) Delfin Haynes E2 OT [id number] Social History Type Description Quantity Date Captured Comments Alcohol Use Details Unknown Caffeine Use Details Unknown Tobacco Use Status Never smoked tobacco 2014 Smoking Status Never smoker Non-Smoking Tobacco Use Details : No Details Available : No Details Available Sex Male Vital Signs Date / Time: Height Weight BMI Pulse Rate Blood Pressure Temperature Respiratory Rate Body Surface Area Head Circumference Head Circ. Percentile Wt./Dillon. Percentile BMI percentile Pulse Ox Inhaled Ox 11:06 AM 67.00 in 88.451 kg (195.00 lbs) 30.5 4 kg/m eter (2) 74 /min 130/70 mm[Hg] 12 /min Chief Complaint And Reason For Visit No Information Reason For Referral Reason For Referral No Information History Of Present Illness Encounter Date Complaint History Of Prese nt Illness No Information Functional Status Date Functional Assessmen t No Information Instructions Date Instruction Additional Infor mation No Information Assessments Type Assessment Date assessment Right foot drop assessment Closed nondisplaced fracture of pelvis, unspecified part of pelvis, sequela assessment Bilateral low back pain with rig ht-sided sciatica Patient Care Teams Name Effective Dates (start - stop) Status Members No Information
--- OUTSIDE RECORDS SUMMARY | 2024-11-19 12:14 | XMS_ITS | Encounter Summary ---
Author Organization [facility] Address 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
--- OUTSIDE RECORDS SUMMARY | 2024-11-19 12:14 | XMS_ITS | Patient Health Summary ---
Author Organization [facility] Address [address] [place] [address] Care Team Providers Care Multi Needle Machine Operator Name Role Phone Gee Mckeon MD Primary Care Provider [phone] Note from [facility],non-owned Affiliates and Associated Physician Practices is amultiple site organization consisting of ambulatory clinics and hospital sitesin [place], [place], [place]. This disclosure is being madepursuant to the Care Everywhere program and may not contain all information available regarding this patient. Last updated 18.[facility] Allergies * Sulfa Drugs(Rash) -Medium Criticality Medications * Be aware that medications may not be up to date on this document. Alwaysverify current medications with the patient. * atorvastatin (LIPITOR) 80 MG tablet Take 80 mg by mouth at bedtime * isosorbide mononitrate CR 24hr (IMDUR) 30 MG tablet Take 30 mg by mouth once daily * gabapentin (NEURONTIN) 100 MG capsule Take 100 mg by mouth 3 times daily * rivaroxaban (XARELTO) 2.5 MG TABS tablet Take 2.5 mg by mouth 2 times daily * tamsulosin (FLOMAX) 0.4 MG capsule Take 0.4 mg by mouth once daily At the same time every day after a meal. * omeprazole (PRILOSEC) 40 MG capsule Take 40 mg by mouth daily before breakfast * furosemide (LASIX) 20 MG tablet Take 20 mg by mouth once daily * aspirin EC (ECOTRIN) 81 MG tablet Take 81 mg by mouth once daily * nitroGLYCERIN (NITROSTAT) 0.4 MG tablet Dissolve 0.4 mg under the tongue every 5 minutes as needed for Angina Social History Tobacco Use Types Packs/Day Years [...] Mass Index 32.91 02/06/2022 9:36 AM CDT Procedures * STRESS TEST(Performed 02/06/2022) Performed for Disability examination, Coronary artery disease, unspecified vessel or lesion type, unspecified whether angina present, unspecified whether [place] or transplanted heart Results * STRESS TEST (02/06/2022 10:15 AM CDT) BSA 2.1 m2 [facility] CV FUJ I PACS Angina Index 0 [facility] CV FUJI PACS Exercise duration (min) 6 min [facility] CV FUJI PACS Exercise duration (sec) 15 sec [facility] CV FUJI PACS Peak METS Achieved 7.3 METS [facility] CV FUJI PACS Baseline HR 59 bpm [facility] CV F UJI PACS Stress peak HR 109 bpm [facility] C V FUJI PACS Max Age Predicted HR 156 bpm [facility] CV FUJI PACS Baseline BP 116/60 mmHg [facility] CV F UJI PACS Post peak BP 160/80 mmHg [facility] CV FUJI PACS Anatomical Region Laterality Modality Ultrasound Narrative 02/07/2022 7:45 AM CDT 66-year-old male who had exercise test on Eugene protocol. His resting heart rate was 63 and the maximum heart rate was 109 which was 69% of maximum predicted. The resting blood pressure was 116/60 and the maximum blood pressure was 160/80 the patient started having leg discomfort and shortness of breath therefore the exercise was stopped. He did not reach 85% of the maximum predicted heart rate therefore the exercises sub optimal. No chest pain was reported and there was no EKG changes of ischemia. No arrhythmias were noticed during exercise nor during the recovery. . Impression no chest pain, ischemia, arrhythmias noticed during exercise and during the recovery.. Clinical correlation is required because the exercises sub optimal Resting ECG ECG is normal. The ECG shows sinus bradycardia. Stress Findings A Eugene protocol stress test was performed. The patient exercised for 6 min and 15 sec and had a maximal HR of 109 bpm ( % of MPHR) 7.3 METS. The patient experienced no angina during the test. The test was stopped because the patient experienced dyspnea and leg pain. The patient reported dyspnea during the stress test. Symptoms began at minute 1003 during stress and ended at minute 1006 during recovery. Stress ECG There were no arrhythmias during stress. There were no arrhythmias during recovery. Finesse Chinchilla MD CARDIAC SERVICES [facility] Care Teams Multi Needle Machine Operator Relationship Specialty Start Date End Date Gee Mckeon MD [address] [place] [address] [address] [place] [address] PCP - General Internal Medicine 02/06/22
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
--- OUTSIDE RECORDS SUMMARY | 2024-11-19 12:15 | XMS_ITS | Continuity of Care Document ---
Author Organization [facility] Address [place], [place] [address] Care Team Providers Care Professor Of Radiology Name Role Phone Adriana Matamoros MD Unavailable [...] Providers Copied on Encounter OFFICE/OUTPA TIENT VISIT [facility], [place], [address], [facility] Right foot dropClosed nondisplaced fracture of pelvis, unspecified part of pelvis, sequelaBilate ral low back pain with right-sided sciatica -[address], [place], [place], [id number] . tel:[phone] Family History Family Member Type Diagnosis Age At Onset No Information Payers Payer name Insurance type Covered democrat ID Authoriza tiashu(s) Delfin Haynes E2 OT [id number] Social History Type Description Quantity Date Captured [...]
== END 2024-11-19 12:22 | disposition home or self-care (01) ==
PROVIDERS: Emergency Provider Nurse Practitioner
DX: M54.9 Dorsalgia, unspecified (principal); I25.10 Atherosclerotic heart disease of native coronary artery without angina pectoris; I10 Essential (primary) hypertension; E78.00 Pure hypercholesterolemia, unspecified; K21.9 Gastro-esophageal reflux disease without esophagitis; E11.9 Type 2 diabetes mellitus without complications; E89.0 Postprocedural hypothyroidism; Z95.5 Presence of coronary angioplasty implant and graft; Z79.82 Long term (current) use of aspirin
CPT/HCPCS: 99213; G0463

== ENCOUNTER 2025-02-18 12:48 | Emergency (ER) | payer OTHER, SELFPAY ==
--- OUTSIDE RECORDS SUMMARY | 2025-02-18 12:51 | XMS_ITS | Encounter Summary ---
Author Organization [facility] Address [address] [place] [address] Care Team Providers Care Business Management Consultant Name Role Phone Adriana Matamoros MD Primary Care Provider [phone] Encounter Details Date Type Department Care Team [...] on file Legal Sex Male 3:48 AM MULTIPLE WIRE SAWYER Gender Identity Not on file Sexual Orientation Not on file documented as of this encounter Plan of Treatment Not on file documented as of this encounter Procedures Procedure Name Priority Date/Time Associated Diagnosis Comments CT ABDOMEN PELVIS WO CONTRAST Routine 10/06/2007 3:24 PM MULTIPLE WIRE SAWYER documented in this encounter Results * CT ABDOMEN PELVIS WO CONTRAST (10/06/2007 3:24 PM MULTIPLE WIRE SAWYER) Anatomical Region Laterality Modality Abdomen Other 10/06/2007 3:24 PM MULTIPLE WIRE SAWYER Narrative 10/06/2007 3:53 PM MULTIPLE WIRE SAWYER [address] [address] Admit Date: 10/06/2007 TRISTA HENRY Mary Sex: M Admit Prov: NASREEN VILLANUEVA Date: 1955 Primary Care Prov: CMRN: [id number] Room: [facility] SSN: [id number] IMAGING SERVICES Ordering Prov: N/A Accession Number: [id number] Interpretation CT abdomen and pelvis without contrast [...] 15:53 Procedure Note Annette Orlando - 10/07/2007 [facility] [address] [place], [place] [address] Admit Date: 10/06/2007 HENRY PINO Sex: M Admit Prov: NASREEN VILLANUEVA Date: 1955 Primary Care Prov: CMRN: [id number] Room: [facility] SSN: [id number] IMAGING SERVICES Ordering Prov: N/A Interpretation CT [...] ureter documented in this encounter Care Teams Business Management Consultant Relationship Specialty Start Date End Date Adriana Matamoros MD [address] [place] [id number] PCP - General 08/21/06 documented as of this encounter
--- OUTSIDE RECORDS SUMMARY | 2025-02-18 12:51 | XMS_ITS | Encounter Summary ---
Author Organization [facility] Address 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
--- OUTSIDE RECORDS SUMMARY | 2025-02-18 12:51 | XMS_ITS | Encounter Summary ---
Author Organization [employer] Address [address] [place] [address] Care Team Providers Care Ui Ux Developer Name Role Phone Adriana Matamoros MD Primary Care Provider [phone] Encounter Details Date Type Department Care Team (Latest Contact Info) Description 10/19/2004 Inpatient Historical HIS PATIENT IN A BED Adriana Matamoros MD 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 Gender Identity Not on file Sexual Orientation Not on file documented as of this encounter Plan of Treatment Not on file documented as of this encounter Procedures Procedure Name Priority Date/Time Associated Diagnosis Comments PROTIME-INR Routine 11/18/2004 4:30 AM SPRAY STAINER PROTIME-INR Routine 11/16/2004 5:05 AM SPRAY STAINER CBC WITH DIFFERENTIAL Routine 11/15/2004 5:37 AM SPRAY STAINER CBC WITH DIFFERENTIAL Routine 11/15/2004 5:37 AM SPRAY STAINER BASIC METABOLIC PANEL Routine 11/15/2004 5:37 AM SPRAY STAINER CBC WITH DIFFERENTIAL Routine 11/07/2004 5:00 AM SPRAY STAINER CBC WITH DIFFERENTIAL Routine 11/07/2004 5:00 AM SPRAY STAINER BASIC METABOLIC PANEL Routine 11/07/2004 5:00 AM SPRAY STAINER CBC WITH DIFFERENTIAL Routine 10/29/2004 4:26 AM SPRAY STAINER CBC WITH DIFFERENTIAL Routine 10/29/2004 4:26 AM SPRAY STAINER BASIC METABOLIC PANEL Routine 10/29/2004 4:26 AM SPRAY STAINER OCCULT BLOOD GUAIAC DIAGNOSTIC Routine 10/27/2004 9:33 AM SPRAY STAINER OCCULT BLOOD GUAIAC DIAGNOSTIC Routine 10/26/2004 5:53 PM SPRAY STAINER HEMOGLOBIN AND HEMATOCRIT Routine 10/25/2004 11:30 AM SPRAY STAINER IRON, TIBC, AND PERCENT SATURATION Routine 10/25/2004 11:30 AM SPRAY STAINER FOLATE RBC AND HEMATOCRIT Routine 10/25/2004 11:30 AM SPRAY STAINER VITAMIN B12 LEVEL Routine 10/25/2004 11: 30 AM SPRAY STAINER OCCULT BLOOD GUAIAC DIAGNOSTIC Routine 10/24/2004 10:30 PM SPRAY STAINER CBC WITH DIFFERENTIAL Routine 10/24/2004 4:40 AM SPRAY STAINER CBC WITH DIFFERENTIAL Routine 10/24/2004 4:40 AM SPRAY STAINER CBC WITH DIFFERENTIAL Routine 10/23/2004 5:00 AM SPRAY STAINER CBC WITH DIFFERENTIAL Routine 10/23/2004 5:00 AM SPRAY STAINER BASIC METABOLIC PANEL Routine 10/23/2004 5:00 AM SPRAY STAINER CBC WITH DIFFERENTIAL Routine 10/19/2004 4:00 PM SPRAY STAINER CBC WITH DIFFERENTIAL Routine 10/19/2004 4:00 PM SPRAY STAINER C-REACTIVE PROTEIN Routine 10/19/2004 4: 00 PM SPRAY STAINER COMPREHENSIVE METABOLIC PANEL Routine 10/19/2004 4:00 PM SPRAY STAINER URINALYSIS W/REFLEX MICROSCOPIC Routine 10/19/2004 2:32 PM SPRAY STAINER documented in this encounter Results * (ABNORMAL) PROTIME-INR (11/18/2004 4:30 AM SPRAY STAINER) PROTIME 16.4(H) 12.9 - 15.7 Seconds INTERFACE [...] have not been established. 11/18/2004 4:30 AM SPRAY STAINER us Adriana Matamoros MD HEMATOLOGY ORDERABLES Final R esult INTERFACE SYSTEM Refer to clinic/hospital department * PROTIME-INR (11/16/2004 5:05 AM SPRAY STAINER) PROTIME 14.8 12.9 - 15.7 Seconds INTERFACE [...] have not been established. 11/16/2004 5:05 AM SPRAY STAINER Adriana Matamoros MD HEMATOLOGY ORDERABLES Final R [facility] Performing Organization Address [facility] Phone Number INTERFACE SYSTEM Refer to clinic/hospital department * CBC WITH DIFFERENTIAL (11/15/2004 5:37 AM SPRAY STAINER) NEUTROPHILS 68 45 - 70 % INTERFAC [...] 0.20 K/uL INTERFACE SYSTEM 11/15/2004 5:37 AM SPRAY STAINER Adriana Matamoros MD HEMATOLOGY ORDERABLES Final R [facility] Performing Organization Address [facility] Phone Number INTERFACE SYSTEM Refer to clinic/hospital department * (ABNORMAL) CBC WITH DIFFERENTIAL (11/15/2004 5:37 AM SPRAY STAINER) WBC 6.3 4.0 - 9.8 K/uL INTERFACE [...] 12.4 fL INTERFACE SYSTEM 11/15/2004 5:37 AM SPRAY STAINER Adriana Matamoros MD HEMATOLOGY ORDERABLES Final R esult Performing Organization Address [facility] de Phone Number INTERFACE SYSTEM Refer to clinic/hospital department * BASIC METABOLIC PANEL (11/15/2004 5:37 AM SPRAY STAINER) GLUCOSE 105 65 - 109 mg/dL INTERFACE [...] 30 mmol/L INTERFACE SYSTEM 11/15/2004 5:37 AM SPRAY STAINER Adriana Matamoros MD CHEMISTRY ORDERABLES Final Re sult Performing Organization Address [facility] Phone Number INTERFACE SYSTEM Refer to clinic/hospital department * CBC WITH DIFFERENTIAL (11/07/2004 5:00 AM SPRAY STAINER) NEUTROPHILS 56 45 - 70 % INTERFAC [...] 0.20 K/uL INTERFACE SYSTEM 11/07/2004 5:00 AM SPRAY STAINER Adriana Matamoros MD HEMATOLOGY ORDERABLES Final R esult Performing Organization Address [facility] Phone Number INTERFACE SYSTEM Refer to clinic/hospital department * (ABNORMAL) CBC WITH DIFFERENTIAL (11/07/2004 5:00 AM SPRAY STAINER) WBC 4.3 4.0 - 9.8 K/uL INTERFACE [...] 12.4 fL INTERFACE SYSTEM 11/07/2004 5:00 AM SPRAY STAINER Adriana Matamoros MD HEMATOLOGY ORDERABLES Final R esult Performing Organization Address [facility] Phone Number INTERFACE SYSTEM Refer to clinic/hospital department * BASIC METABOLIC PANEL (11/07/2004 5:00 AM SPRAY STAINER) GLUCOSE 96 65 - 109 mg/dL INTERFACE [...] 30 mmol/L INTERFACE SYSTEM 11/07/2004 5:00 AM SPRAY STAINER us Adriana Matamoros MD CHEMISTRY ORDERABLES Final Re sult Performing Organization Address [facility] Phone Number INTERFACE SYSTEM Refer to clinic/hospital department * CBC WITH DIFFERENTIAL (10/29/2004 4:26 AM SPRAY STAINER) Pathologist [facility] NEUTROPHILS 65 45 - 70 % INTERFAC [...] 0.20 K/uL INTERFACE SYSTEM 10/29/2004 4:26 AM SPRAY STAINER us Adriana Matamoros MD HEMATOLOGY ORDERABLES Final R esult Performing Organization Address [facility] Phone Number INTERFACE SYSTEM Refer to clinic/hospital department * (ABNORMAL) CBC WITH DIFFERENTIAL (10/29/2004 4:26 AM SPRAY STAINER) Pathologist [facility] WBC 6.5 4.0 - 9.8 K/uL INTERFACE [...] 12.4 fL INTERFACE SYSTEM 10/29/2004 4:26 AM SPRAY STAINER us Adriana Matamoros MD HEMATOLOGY ORDERABLES Final R esult Performing Organization Address [facility] de Phone Number INTERFACE SYSTEM Refer to clinic/hospital department * BASIC METABOLIC PANEL (10/29/2004 4:26 AM SPRAY STAINER) GLUCOSE 97 65 - 109 mg/dL INTERFACE [...] 30 mmol/L INTERFACE SYSTEM 10/29/2004 4:26 AM SPRAY STAINER Result Vince Mtaamoros MD CHEMISTRY ORDERABLES Final Re sult Performing Organization Address [facility] Phone Number INTERFACE SYSTEM Refer to clinic/hospital department * OCCULT BLOOD, STOOL (10/27/2004 9:33 AM SPRAY STAINER) OCCULT BLOOD, STOOL Negative Negative INTERFACE SYSTEM 10/27/2004 9:33 AM SPRAY STAINER Result Vince Matamoros MD BODY FLUIDS AND STOOLS Final Result Performing Organization Address [facility] Phone Number INTERFACE SYSTEM Refer to clinic/hospital department * OCCULT BLOOD, STOOL (10/26/2004 5:53 PM SPRAY STAINER) OCCULT BLOOD, STOOL Negative Negative INTERFACE SYSTEM 10/26/2004 5:53 PM SPRAY STAINER Result Vince Matamoros MD BODY FLUIDS AND STOOLS Final Result Performing Organization Address [facility] Phone Number INTERFACE SYSTEM Refer to clinic/hospital department * (ABNORMAL) FOLATE RBC AND HEMATOCRIT (10/25/2004 11:30 AM SPRAY STAINER) HEMATOCRIT, FOLATE 30.3(L) 40.0 - 48.0 % INTERFACE SYSTEM RBC FOLATE 1095 >=341 ng/mL INTERFACE SYSTEM 10/25/2004 11:3 0 AM SPRAY STAINER Result Vince Matamoros MD CHEMISTRY ORDERABLES Final Re sult Performing Organization Address [facility] Phone Number INTERFACE SYSTEM Refer to clinic/hospital department * VITAMIN B12 (10/25/2004 11:30 AM SPRAY STAINER) VITAMIN B12 763 243 - 894 pg/mL INTERFACE SYSTEM Comment: It has been reported that between 5 to 10% of patients with values between 200 and 400 pg/mL may experience neuropsychiatric and hematologic abnormalities due to occult B12 deficiency. Less than 1% of patients with values above 400 pg/mL will have symptoms. 10/25/2004 11:3 0 AM SPRAY STAINER Adriana Matamoros MD CHEMISTRY ORDERABLES Final Re sult Performing Organization Address [facility] Phone [facility] INTERFACE SYSTEM Refer to clinic/hospital department * (ABNORMAL) HEMOGLOBIN AND HEMATOCRIT (10/25/2004 11:30 AM SPRAY STAINER) HEMOGLOBIN 9.3(L) 13.6 - 16.5 g/dL INTERFACE SYSTEM HEMATOCRIT 30.3(L) 40.0 - 48.0 % INTERFACE SYSTEM 10/25/2004 11:3 0 AM SPRAY STAINER Adriana Matamoros MD HEMATOLOGY ORDERABLES Final R esult Performing Organization Address [facility] Phone Number INTERFACE SYSTEM Refer to clinic/hospital department * (ABNORMAL) IRON AND TIBC (10/25/2004 11:30 AM SPRAY STAINER) IRON 50 45 - 160 ug/dL INTERFACE SYSTEM IRON % SATURATION 17(L) 20 - 50 % INTERFACE SYSTEM TIBC 286 250 - 450 ug/dL INTERFACE SYSTEM 10/25/2004 11:3 0 AM SPRAY STAINER Adriana Matamoros MD CHEMISTRY ORDERABLES Final Re sult Performing Organization Address [facility] Phone Number INTERFACE SYSTEM Refer to clinic/hospital department * OCCULT BLOOD, STOOL (10/24/2004 10:30 PM SPRAY STAINER) OCCULT BLOOD, STOOL Negative Negative INTERFACE SYSTEM 10/24/2004 10:3 0 PM SPRAY STAINER Adriana Matamoros MD BODY FLUIDS AND STOOLS Final Result Performing Organization Address [facility] de Phone Number INTERFACE SYSTEM Refer to clinic/hospital department * (ABNORMAL) CBC WITH DIFFERENTIAL (10/24/2004 4:40 AM SPRAY STAINER) NEUTROPHIL ABSOLUTE 6.69 1.90 - 7.00 K/uL [...] Slight INTERFA CE SYSTEM 10/24/2004 4:40 AM SPRAY STAINER Adriana Matamoros MD HEMATOLOGY ORDERABLES Final R esult Performing Organization Address [facility] Phone Number INTERFACE SYSTEM Refer to clinic/hospital department * (ABNORMAL) CBC WITH DIFFERENTIAL (10/24/2004 4:40 AM SPRAY STAINER) WBC 7.6 4.0 - 9.8 K/uL INTERFACE [...] 12.4 fL INTERFACE SYSTEM 10/24/2004 4:40 AM SPRAY STAINER Adriana Maatmoros MD HEMATOLOGY ORDERABLES Final R esult Performing Organization Address [facility] de Phone Number INTERFACE SYSTEM Refer to clinic/hospital department * (ABNORMAL) CBC WITH DIFFERENTIAL (10/23/2004 5:00 AM SPRAY STAINER) NEUTROPHILS 74(H) 45 - 70 % INTERFAC [...] 0.20 K/uL INTERFACE SYSTEM 10/23/2004 5:00 AM SPRAY STAINER Adriana Matamoros MD HEMATOLOGY ORDERABLES Final R [facility] Performing Organization Address [facility] de Phone Number INTERFACE SYSTEM Refer to clinic/hospital department * (ABNORMAL) CBC WITH DIFFERENTIAL (10/23/2004 5:00 AM SPRAY STAINER) WBC 7.8 4.0 - 9.8 K/uL INTERFACE [...] 12.4 fL INTERFACE SYSTEM 10/23/2004 5:00 AM SPRAY STAINER Adriana Matamoros MD HEMATOLOGY ORDERABLES Final R esult Performing Organization Address [facility] de Phone Number INTERFACE SYSTEM Refer to clinic/hospital department * (ABNORMAL) BASIC METABOLIC PANEL (10/23/2004 5:00 AM SPRAY STAINER) GLUCOSE 94 65 - 109 mg/dL INTERFACE [...] 30 mmol/L INTERFACE SYSTEM 10/23/2004 5:00 AM SPRAY STAINER Adriana Matamoros MD CHEMISTRY ORDERABLES Final Re sult Performing Organization Address [facility] Phone Number INTERFACE SYSTEM Refer to clinic/hospital department * (ABNORMAL) CBC WITH DIFFERENTIAL (10/19/2004 4:00 PM SPRAY STAINER) NEUTROPHILS 85(H) 45 - 70 % INTERFAC [...] 0.20 K/uL INTERFACE SYSTEM 10/19/2004 4:00 PM SPRAY STAINER Adriana Matamoros MD HEMATOLOGY ORDERABLES Final R esult Performing Organization Address City/[facility]/ZIP Co de Phone Number INTERFACE SYSTEM Refer to clinic/hospital department * (ABNORMAL) CBC WITH DIFFERENTIAL (10/19/2004 4:00 PM SPRAY STAINER) WBC 12.7(H) 4.0 - 9.8 K/uL INTERFACE [...] 12.4 fL INTERFACE SYSTEM 10/19/2004 4:00 PM SPRAY STAINER Adriana Matamoros MD HEMATOLOGY ORDERABLES Final R esult Performing Organization Address [facility] Co de Phone Number INTERFACE SYSTEM Refer to clinic/hospital department * (ABNORMAL) C-REACTIVE PROTEIN (10/19/2004 4:00 PM SPRAY STAINER) CRP 9.8(H) 0.0 - 0.8 mg/dL INTERFACE SYSTEM 10/19/2004 4:00 PM SPRAY STAINER Result [facility] [place] Adriana Matamoros MD CHEMISTRY ORDERABLES Final Re sult Performing Organization Address [place]/[facility] Co de Phone Number INTERFACE SYSTEM Refer to clinic/hospital department * (ABNORMAL) COMPREHENSIVE METABOLIC PANEL (10/19/2004 4:00 PM SPRAY STAINER) GLUCOSE 113(H) 65 - 109 mg/dL INTERFACE [...] 30 mmol/L INTERFACE SYSTEM 10/19/2004 4:00 PM SPRAY STAINER Adriana Matamroos MD CHEMISTRY ORDERABLES Final Re sult Performing Organization Address [facility] Co de Phone Number INTERFACE SYSTEM Refer to clinic/hospital department * (ABNORMAL) URINALYSIS (10/19/2004 2:32 PM SPRAY STAINER) COLOR UA Yellow INTERFACE SYSTEM CLARITY UA [...] Few /HPF INTERFACE SYSTEM 10/19/2004 2:32 PM SPRAY STAINER Adriana Matamoros MD URINE ORDERABLES Final Result Performing Organization Address [facility]/ZIP Co de Phone Number INTERFACE SYSTEM Refer to clinic/hospital department documented in this encounter Visit Diagnoses Diagnosis Other specified rehabilitation procedure(V57.89)- Primary Other specified rehabilitation procedure documented in this encounter Care Teams Ui Ux Developer Relationship Specialty Start Date End Date Adriana Matamoros MD [address] [place] [address] PCP - General 08/21/06 documented as of this encounter
--- OUTSIDE RECORDS SUMMARY | 2025-02-18 12:51 | XMS_ITS | Encounter Summary ---
Author Organization [employer] Address [address] [place] [address] Care Team Providers Care Buffing Machine Tender Name Role Phone Adriana Matamoros MD Primary Care Provider [phone] Encounter Details Date Type Department Care Team (Late st Contact Info) Description 10/19/[address] [facility] [facility] [address] 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
--- OUTSIDE RECORDS SUMMARY | 2025-02-18 12:51 | XMS_ITS | Encounter Summary ---
Author Organization [employer] [facility] Address [address] [place] [address] Care Team Providers Care Artificial Pearl Maker Name Role Phone Adriana Matamoros MD Primary Care Provider [phone] Encounter Details Date Type Department Care Team (Late st Contact Info) Description 09/10/2005 Outpatient Historical [facility] Support Services [facility] [address] [place] [address] Adriana Matamoros MD [address] [place] [address] Social History Tobacco Use Types Packs/Day Years Used Date Smoking Tobacco: Never Assessed Sex and Gender Information Value Date Recorded Sex Assigned at Not on file 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
--- OUTSIDE RECORDS SUMMARY | 2025-02-18 12:51 | XMS_ITS | Encounter Summary ---
Author Organization [facility] Address 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
--- OUTSIDE RECORDS SUMMARY | 2025-02-18 12:51 | XMS_ITS | Encounter Summary ---
Author Organization [facility] Address [address] [place] [address] Care Team Providers Care Auto Crane Driver Name Role Phone Adriana Matamoros MD Primary Care Provider [phone] Encounter Details Date Type Department Care Team (Late st Contact Info) Description 10/10/2007 Outpatient Historical HIS [facility] Nasreen Villanueva MD NO ADDRESS ON FILE Unspecified Disorder of Kidney and Ureter Social History Tobacco Use Types Packs/Day Years Used Date Smoking Tobacco: Never Assessed Sex and Gender Information Value Date Recorded Sex Assigned at Not on file Legal Sex Male 3:48 AM HAND FINISHER Gender Identity Not on file Sexual Orientation Not on file documented as of this encounter Plan of Treatment Not on file documented as of this encounter Procedures Procedure Name Priority Date/Time Associated Diagnosis Comments US RETROPERITONEAL COMPLETE Routine 10/10/2007 10:33 AM HAND FINISHER documented in this encounter Results * US RETROPERITONEAL COMPLETE (10/10/2007 10:33 AM HAND FINISHER) Anatomical Region Laterality Modality Pelvis Other 10/10/2007 10:3 3 AM HAND FINISHER Narrative 10/10/2007 3:31 PM HAND FINISHER [address] [address] Admit Date: 10/10/2007 HENRY PINO Mary Sex: M Admit Prov: NASREEN VILLANUEVA Date: 1955 Primary Care Prov: CMRN: [id number] Room: [facility] SSN: [id number] IMAGING SERVICES Ordering Prov: N/A Accession Number: [id number] Interpretation RENAL ULTRASOUND, 10/10/2007 History: Renal insufficiency. [...] SMM Procedure Note Jeremy Browne - 10/10/2007 [id number] [place], [place] [address] Admit Date: 10/10/2007 HENRY PINO Sex: M Admit Prov: NASREEN VILLANUEVA Date: 1955 Primary Care Prov: CMRN: [id number] Room: [facility] SSN: [id number] IMAGING SERVICES Ordering Prov: N/A Interpretation RENAL [...] ureter documented in this encounter Care Teams Auto Crane Driver Relationship Specialty Start Date End Date Adriana Matamoros MD [address] [place] [address] PCP - General 08/21/06 documented as of this encounter
--- OUTSIDE RECORDS SUMMARY | 2025-02-18 12:51 | XMS_ITS | Clinical Summary ---
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
--- OUTSIDE RECORDS SUMMARY | 2025-02-18 12:52 | XMS_ITS | Encounter Summary ---
Author Organization [facility] Address 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
--- OUTSIDE RECORDS SUMMARY | 2025-02-18 12:52 | XMS_ITS | Encounter Summary ---
Author Organization [facility] Address [address] [place] [address] Care Team Providers Care Client Services Vice President Name Role Phone Adriana Matamoros MD Primary Care Provider [phone] Encounter Details Date Type Department Care Team (Latest Contact Info) Description 12/19/2006 Outpatient Historical [facility] JOSE MANUEL Villanueva, Percy Reza MD NO ADDRESS ON FILE Calculus of Kidney (Primary Dx) Social History Tobacco Use Types Packs/Day Years Used Date Smoking Tobacco: Never Assessed Sex and Gender Information Value Date Recorded Sex Assigned at Not on file Legal Sex Male 3:48 AM [employer] Gender Identity Not on file Sexual Orientation Not on file documented as of this encounter Plan of Treatment Not on file documented as of this encounter Visit Diagnoses Diagnosis Calculus of kidney- Primary documented in this encounter Care Teams Client Services Vice President Relationship Specialty Start Date End Date Adriana Matamoros MD [address] [place] [id number] PCP - General 08/21/06 documented as of this encounter
--- OUTSIDE RECORDS SUMMARY | 2025-02-18 12:52 | XMS_ITS | Clinical Summary ---
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 Literature References: 1. Expert Panel on Integrated Guidelines for Cardiovascular Health and Risk Reduction in Children and Adolescents. Pediatrics 2011;128:S213 2. NCEP Expert Panel. Circulation 2004;110:227 Current Interpretive Data was last revised on 2018. LDL, calculated 69 <=129 mg/dL GEOFF Comment: Interpretive Data Ages < or = 19 years Acceptable: <110 mg/dL Borderline high: 110-129 mg/dL High: >or= 130 mg/dL Ages > or = 20 years Optimal: <100 mg/dL Near optimal: 100-129 mg/dL Borderline high: 130-159 mg/dL High: >160 mg/dL Calculated using the Agustin LDL-C estimating equation. This equation was implemented on 2024. Prior to this date LDL-C was estimated using the Friedewald equation. Literature References: 1. Expert Panel on Integrated Guidelines for Cardiovascular Health and Risk Reduction in Children and Adolescents. Pediatrics 2011;128:S213 2. NCEP Expert Panel. Circulation 2004;110:227 3. Vamsi M et al. SINDY Cardiol. 2020 January 06;5(5):540-548. doi: 10.1001/jamacardio.2020.0013 Current Interpretive Data was last revised on 2024. Non-HDL Cholesterol 88 mg/dL [facility] Comment: Interpretive Data Ages < or = 19 years Acceptable: <120 mg/dL Borderline high: 120-144 mg/dL High: >145 mg/dL Ages > or = 20 years When triglycerides are >200 mg/dL, Non-HDL cholesterol is a secondary target of therapy with treatment goals that are 30 mg/dL greater than the LDL cholesterol target. Literature References: 1. Expert Panel on Integrated Guidelines for Cardiovascular Health and Risk Reduction in Children and Adolescents. Pediatrics 2011;128:S213 2. NCEP Expert Panel. Circulation 2004;110:227 Current Interpretive Data was last revised on 2018. Chol/HDL ratio 3 [facility] Blood 11/23/2024 8:08 AM CDT 11/23/2024 3:11 PM CDT us Shahid Drake MD LAB BLOOD ORDERABLE S Final Result [facility] [address] Department [place] [address] * Comprehensive metabolic panel (11/23/2024 8:08 AM CDT) Sodium 139 135 - 145 mmol/L Potassium, pl 3.9 3.3 - 4.9 mmol/L [facility] Chloride 103 97 - 110 mmol/L [facility] CH CO2 26 22 - 32 mmol/L [facility] CH Anion gap 10 2 - 15 mmol/L [facility] CH BUN 16 6 - 25 mg/dL [facility] Creatinine 0.89 0.80 - 1.30 mg/dL [facility] Glucose 98 70 - 199 mg/dL [facility] Comment: Interpretive Data Fasting glucose >/= 126 mg/dl is diagnostic for diabetes. Fasting is defined as no caloric intake for at least 8 hours. Fasting glucose between 100 mg/dl to 125 mg/dl is diagnostic of prediabetes. In a patient with classic symptoms of hyperglycemia or hyperglycemic crisis, a random glucose >/= 200 mg/dl is diagnostic for diabetes. In the absence of unequivocal hyperglycemia, results should be confirmed by repeat testing. The classification and Diagnosis of Diabetes Diabetes Care 2021; 46: S19-S40. Current interpretive data was last revised 2022. Calcium 9.3 8.5 - 10.3 mg/dL [facility] CH Bilirubin, total 0.4 0.1 - 1.2 mg/dL [facility] CH Protein, pl 7.3 6.5 - 8.5 g/dL [facility] CH Albumin 4.3 3.5 - 5.0 g/dL [facility] CH Alk phos 113 40 - 130 Units/L [facility] CH ALT 22 7 - 55 Units/L [facility] CH AST 22 10 - 50 Units/L [facility] CH Blood 11/23/2024 8:08 AM CDT 11/23/2024 3:11 PM CDT Shahid Drake MD LAB BLOOD ORDERABLE S Final Result [facility] [address] Department of Laboratories [place], [place] [id number] * Colonoscopy (02/17/2024 8:12 AM CDT) Anatomical Region Laterality Modality Other Sara Provider ENDOSCOPY PROCEDURES Batsheva l Result * Hepatitis C (HCV) RNA PCR, quantitative (02/11/2020 9:05 AM CDT) Pathologist [facility] HCV RNA result Not Detected CE SANDRA QUINTEROS (FELIZ) Comment: Interpretive data: The quantifiable range of this assay is 15 IU/mL to 100,000,000 IU/mL (1.18 log IU/mL to 8.00 log IU/mL). Testing was performed by the [employer] AmpliPrep/WILFRED TaqMan HCV Test version 2.0 ([employer] Testing performed at [facility] Current Interpretive Data was last revised on 2015. Testing performed by: [facility], [address] [place]., [address] Blood specimen (specimen) 02/11/2020 9:05 AM CDT 02/11/2020 1:25 PM CDT us Gee Mckeon MD LAB MICROBIOLOGY - GENERAL O RDERABLES Final Result [facility] ([facility]) [address] [facility] Department [place] [address] from Last 3 Months or Most Recently Relevant to Health Maintenance Insurance [employer] CHO[employer] PPO [employer] ADVANTAGE CHOICE PPO Advance Directives For more information, please contact: [phone] Documents on File Type Date Recorded Patient Permit Coordinator Expl anation ADVANCE DIRECTIVE 06/01/2018 9:02 PM * Full Code (Latest Code Status on File) Date Activated Date Inactivated Comments 03/04/2023 3:51 PM 03/05/2023 6:34 PM Care Teams Service Manager Relationship Specialty Start Date End Date Shahid Drake MD [address] [place] [address] PCP - General Family Practice 11/19/24 Ajay Mariee NP [address] [place] [address] [address] [place] [address] Nurse Practitioner Nurse Practitioner 03/05/23
--- OUTSIDE RECORDS SUMMARY | 2025-02-18 12:52 | XMS_ITS | Clinical Summary ---
Author Organization [facility] Address [address] [address] Phone Care Team Providers Care Timers Inspector Name Role Phone Amy Ojeda APRN, FRIT MIXER AND BURNER Unavailable Simón Tate MD Primary Care Provider [phone] Allergies Active Allergy Reactions Criticality Noted Date Comments Cheese Hives Medium 10/14/2023 Pepper Yousif cheese only Sulfa Antibiotics Rash,Hives Medium 07/29/2016 Reaction: Hives, Medications levothyroxine (SYNTHROID) 137 MCG Tablet Take 150 mcg by mouth daily. 6 Active omeprazole (PRILOSEC) 20 MG CAPSULE DELAYED RELEASE Take 20 mg by mouth daily. 6 Active HYDROcodone-acet aminophen (NORCO) 5-325 MG Tablet Take 1-2 Tabs [...] Select Gummies Chewable Tablet Take by mouth. Activ e Active Problems No known active problems Family History Medical History Relation Name Comments [...] Comments Blood Pressure 132/78 10/29/2024 10:05 AM ACETYLENE GAS COMPRESSOR Pulse 52 10/29/2024 10:05 AM ACETYLENE GAS COMPRESSOR Temperature 36.6 C (97.8 F) 10/29/2024 10:05 AM ACETYLENE GAS COMPRESSOR Respiratory Rate 16 10/29/2024 10:05 AM ACETYLENE GAS COMPRESSOR Oxygen Saturation 99% 10/29/2024 10:05 AM ACETYLENE GAS COMPRESSOR Inhaled Oxygen Concentration - - Weight 94.8 kg (209 lb) 10/29/2024 10:05 AM ACETYLENE GAS COMPRESSOR Height 167.6 cm (5' 6) 10/29/2024 10:05 AM ACETYLENE GAS COMPRESSOR Body Mass Index 33.73 10/29/2024 10:05 AM ACETYLENE GAS COMPRESSOR Plan of Treatment Health Maintenance Due Date Last Done Comments Hepatitis C Virus (HCV) Screening 1957 Cologuard 2002 Immunochemical Fecal Occult Blood 2002 Zoster Immunization (1 of 2) 12/30/2007 PSA Discussion 2012 SARS-COV-2 Immunization ( season) 2024 04/30/2021, 04/09/2021 Influenza Immunization (Seas on Ended) 2025 Respiratory Syncytial Virus (RSV) Immunization (Adult) (1 - 1-dose 75+ series) 2032 Colonoscopy 02/16/2034 02/17/2024, 02/17/2024 Colorectal Cancer Screening 02/16/2034 DTaP/Tdap/Td Immunization Discontinued 2014, 09/08/2004 TdaP Immunization Completed 03/27/2015 Pneumococcal Immunization (5 0+ years) Completed 10/14/2023 Pneumococcal Immunization Combined Discontinued 10/14/2023 Hepatitis B Immunization Aged Out No longer eligible based on patient's age to complete this topic Human Papillomavirus (HPV) Immunization Aged Out No longer eligible based on patient's age to complete this topic Meningococcal Immunization (ACWY) Aged Out No longer eligible based on patient's age to complete this topic Rotavirus Immunization Aged Out No lo nger eligible based on patient's age to complete this topic Insurance MEDICARE C [employer] Care Teams Timers Inspector Relationship Specialty Start Date End Date Simón Tate MD [address] [place] [address] PCP - General Family Medicine 02/17/24 Amy Ojeda, CONFIDENTIAL SECRETARY, FRIT MIXER [employer] BURNER [address] [place] [address] Nurse Practitioner Advanced Practice Nurse 12/02/23
--- OUTSIDE RECORDS SUMMARY | 2025-02-18 12:52 | XMS_ITS | Encounter Summary ---
Author Organization [facility] Address 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
--- OUTSIDE RECORDS SUMMARY | 2025-02-18 12:52 | XMS_ITS | Clinical Summary ---
Author Organization [facility] Address [address] [place] [address] Care Team Providers Care Skin Installer Name Role Phone Gee Mckeon MD Primary Care Provider [phone] Source Comments [facility],non-owned Affiliates and Associated Physician Practices is amultiple site organization consisting of ambulatory clinics and hospital sitesin [place], [place], [place] and [place]. This disclosure is being madepursuant to the Care Everywhere program and may not contain all information available regarding this patient. Last updated 18.[employer] [facility] Allergies Active Allergy Reactions Criticality Noted Date Comments Sulfa Drugs Rash Medium 02/06/2022 Medications * Be aware that medications may not be up to date on this document. Alwaysverify current medications with the patient. atorvastatin (LIPITOR) 80 MG tablet Take 80 [...] at Not on file Legal Sex Male 12:09 PM CDT Gender Identity Not on file Sexual [...] 9:36 AM CDT Height 168.9 cm (5' 6.5) 02/06/2022 9:36 AM CDT Body Mass Index [...] VACCINE ( - 2023-2 5 season) 2024 DEPRESSION SCREENING 09/08/2024 INFLUENZA VACCINE (Season Ended) 2025 Respiratory Syncytial Virus (RSV) Vaccine Pt: or [...] patient's age to complete this topic Insurance SERVICES [employer] Care Teams Skin Installer Relationship Specialty Start Date End Date Gee Mckeon MD [address] [place] [address] [address] [place] [address] PCP - General Internal Medicine 02/06/22
--- OUTSIDE RECORDS SUMMARY | 2025-02-18 12:52 | XMS_ITS | Encounter Summary ---
Author Organization [facility] Address 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
--- OUTSIDE RECORDS SUMMARY | 2025-02-18 12:52 | XMS_ITS | Encounter Summary ---
Author Organization [facility] Address 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
--- OUTSIDE RECORDS SUMMARY | 2025-02-18 12:52 | XMS_ITS | Continuity of Care Document ---
Author Organization [facility] Address [place], [place] [address] Care Team Providers Care Regional Clinical Director Name Role Phone Adriana Matamoros MD Unavailable [...] Providers Copied on Encounter OFFICE/OUTPA TIENT VISIT [facility], [place], [address], [facility] Right foot dropClosed nondisplaced fracture of pelvis, unspecified part of pelvis, sequelaBilate ral low back pain with right-sided sciatica -[address], [place], [place], [id number] . tel:[phone] Family History Family Member Type Diagnosis Age At Onset No Information Payers Payer name Insurance type Covered constitution party ID Authoriza tiashu(s) Delfin Haynes E2 [id number] Social History Type Description Quantity Date Captured [...]
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
--- OUTSIDE RECORDS SUMMARY | 2025-02-18 12:53 | XMS_ITS | Continuity of Care Document ---
Author Organization [facility] [place], [place] [address] Care Team Providers Care Primary Class Teacher Name Role Phone Adriana Matamoros MD Unavailable [...] Providers Copied on Encounter OFFICE/OUTPA TIENT VISIT [facility], [place], [address], [facility] Right foot dropClosed nondisplaced fracture of pelvis, unspecified part of pelvis, sequelaBilate ral low back pain with right-sided sciatica -[address], [place], [place], [id number] . tel:[phone] Family History Family Member Type Diagnosis Age At Onset No Information Payers Payer name Insurance type Covered constitution party ID Authoriza tiashu(s) Delfin Haynes E2 [id number] Social History Type Description Quantity Date Captured [...]
[2025-02-18 12:59] VITALS: BP 127/84; PULSE 53; RESP 16; TEMP 36.6; O2SAT 100
--- NOTE | 2025-02-18 13:06 | ED_ITS ---
HPI - Skin/Abscess/Foreign Bdy General Chief complaint: Skin/Abscess/Foreign Body Stated complaint: Rash Time Seen by Provider: 02/18/25 12:59 Source: patient and RN notes reviewed Mode of arrival: ambulatory Limitations: no limitations History of Present Illness HPI narrative: Patient presents today complaining of possible poison yin to the dorsums of both feet and right ankle after cutting grass 2 days ago. The rash appeared yesterday and a severely pruritic. He has tried some topical calamine lotion and powder without much relief. Related Data Home Medications ?Medication ?Instructions ?Recorded ?Confirmed ?Last Taken ?Type aspirin 81 mg tablet,delayed 81 mg PO DAILY 09/23/19 11/19/24 Unknown History release (Kevin Low Dose Aspirin) atorvastatin 80 mg tablet 80 mg PO DAILY 09/23/19 11/19/24 Unknown History isosorbide mononitrate 30 mg 30 mg PO DAILY 09/23/19 11/19/24 Unknown History tablet,extended release 24 hr rivaroxaban 2.5 mg tablet (Xarelto) mg 11/19/24 Unknown History gabapentin 300 mg capsule mg 02/18/25 Unknown History levothyroxine 100 mcg tablet mcg 02/18/25 Unknown History omeprazole 40 mg capsule,delayed mg 02/18/25 Unknown History release Allergies Allergy/AdvReac Type Severity Reaction Status Date / Time Sulfa (Sulfonamide Allergy Unknown Unknown Verified 02/18/25 12:59 Antibiotics) Review of Systems Review of Systems: CONSTITUTIONAL: Denies body aches, fever, chills, or sweats. EYES: Denies visual changes, redness, or discharge. ENT: Denies rhinorrhea, congestion, sore throat, or otalgia. CARDIOVASCULAR: Denies chest pain, palpitations, or edema. RESPIRATORY: Denies cough or dyspnea. GASTROINTESTINAL: Denies abdominal pain, nausea, vomiting, or diarrhea. GENITOURINARY: Denies dysuria or hematuria. SKIN: Pruritic rash MUSCULOSKELETAL: Denies back pain, joint pain, or myalgia. NEUROLOGIC: Denies headache, numbness, tingling, or weakness. PSYCH: Denies depression or anxiety. [facility] Social History Social History Smoking status: Never smoker Comments At time of signature, I have reviewed and agree with nursing past medical, surgical, social and family history unless otherwise noted. Please see nursing chart for further information. There is no relevant family history pertinent to the presenting complaint Exam Narrative: GENERAL: Well-appearing, well-nourished, and in no acute distress. HEAD: Normocephalic, atraumatic. EYES: EOMI. No redness or drainage. Conjunctivae normal. ENT: Mucous membranes pink and moist. NECK: Normal AROM. CHEST: No respiratory distress. EXTREMITIES: Normal range of motion. No edema. SKIN: Warm, dry.. Capillary refill normal. Normal skin turgor. Few scattered faintly erythematous vesicles over the dorsums of both feet and around the right ankle. No signs of bacterial infection. NEURO: No focal deficits. Alert and oriented x3. Gait steady. PSYCH: Normal affect. No signs of depression or anxiety. Course Course Level of Care: Express Care Visit Vital Signs Vital signs: Vital Signs Temperature 97.9 F 02/18/25 12:59 Pulse Rate 53 L 02/18/25 12:59 Respiratory Rate 16 02/18/25 12:59 Blood Pressure 127/84 02/18/25 12:59 Pulse Oximetry 100 02/18/25 12:59 Oxygen Delivery Room Air 02/18/25 12:59 Temperature 97.9 F 02/18/25 12:59 Pulse Rate 53 L 02/18/25 12:59 Respiratory Rate 16 02/18/25 12:59 Blood Pressure 127/84 02/18/25 12:59 Pulse Oximetry 100 02/18/25 12:59 Oxygen Delivery Room Air 02/18/25 12:59 Reviewed MDM - Skin/Abscess/Foreign Bdy MDM Narrative Medical decision making narrative: Patient will be started on triamcinolone cream as rash is fairly localized, however, prescription for some prednisone will also be sent that he can started a few days if he feels that the rash is not improving. Recommend oral antihistamine for itching as well. Patient agrees with plan. Anticipatory guidance given. Differential Diagnosis Differential diagnosis: Likely abscess of skin or subcutaneous tissue, cellulitis, eczema, insect bites, impetigo and contact dermatitis Critical Care Time Critical Care Time Critical Care Time: No Discharge Plan Discharge Clinical Impression: Contact dermatitis Qualifiers: Contact dermatitis type: irritant Contact dermatitis trigger: unspecified trigger Qualified Code(s): L24.9 - Irritant contact dermatitis, unspecified cause Patient Disposition: Home Condition: Stable Instructions: Poison Yin (ED) Additional Instructions: Please start the triamcinolone cream and use as directed. As discussed, after a couple of days if you do not feel that your symptoms are improving, you may start the prednisone and take as directed. You may try an oral antihistamine such as Zyrtec, Claritin, or Chacha to help with your itching as well. Follow- up with your PCP in 3 days if symptoms are not improving. Your blood pressure was elevated above 120/80 today at Urgent Care. This puts you above the threshold for follow up. Please schedule a followup visit with your personal physician as soon as possible, for further evaluation and treatment. Even blood pressure exceeding 120/80 may indicate pre-hypertension. Patient Language: Stateless Prescriptions: New prednisone 20 mg tablet 40 mg PO DAILY 5 Days Qty: 10 0RF triamcinolone acetonide 0.1 % cream 1 applic topical BID Qty: 30 0RF No Action atorvastatin 80 mg Tablet 80 mg PO DAILY isosorbide mononitrate 30 mg Tablet Extended Release 24 Hr 30 mg PO DAILY aspirin [Kevin Low Dose Aspirin] 81 mg Tablet,Delayed Release (Dr/Ec) 81 mg PO DAILY Xarelto 2.5 mg tablet omeprazole 40 mg capsule,delayed release(DR/EC) levothyroxine 100 mcg tablet gabapentin 300 mg capsule Follow-up/Referrals: UNKNOWN,DOCTOR [Primary Care Provider] - Time of Disposition: 13:10
== END 2025-02-18 13:24 | disposition home or self-care (01) ==
PROVIDERS: Emergency Provider Nurse Practitioner
DX: L24.9 Irritant contact dermatitis, unspecified cause (principal); I25.10 Atherosclerotic heart disease of native coronary artery without angina pectoris; Z95.5 Presence of coronary angioplasty implant and graft; I10 Essential (primary) hypertension; E78.00 Pure hypercholesterolemia, unspecified; K21.9 Gastro-esophageal reflux disease without esophagitis; E11.9 Type 2 diabetes mellitus without complications; Z79.82 Long term (current) use of aspirin
CPT/HCPCS: 99213; G0463

== ENCOUNTER 2025-03-14 12:28 | Emergency (ER) | payer OTHER, SELFPAY ==
--- OUTSIDE RECORDS SUMMARY | 2025-03-14 12:31 | XMS_ITS | Clinical Summary ---
Author Organization [facility] Address [address] [place] [address] Attn: Epic Prelude ADT RICARDO GREEN [place]READ [id number] Care Team Providers Care Director Of Philanthropy Name Role Phone Adriana Matamoros MD Primary Care Provider [phone] Social History Tobacco Use Types Packs/Day Years Used Date Smoking Tobacco: Never Assessed Sex and Gender Information Value Date Recorded Sex Assigned at Not on file Legal Sex Male 3:48 AM MANAGER OFFICE Gender Identity Not on file Sexual Orientation [...] (1 of 2) 12/30/2007 INFLUENZA VACCINE (#1) 2025 RSV VACCINE (60+ or ) (1 - 1-dose 75+ series) 2032 Care Teams Director Of Philanthropy Relationship Specialty Start Date End Date Adriana Matamoros MD [address] [place] [address] PCP - General 08/21/06
--- OUTSIDE RECORDS SUMMARY | 2025-03-14 12:31 | XMS_ITS | Encounter Summary ---
Author Organization [employer] [facility] Address [address] [place] [address] Care Team Providers Care Poultry Inseminator Name Role Phone Adriana Matamoros MD Primary Care Provider [phone] Encounter Details Date Type Department Care Team (Latest Contact Info) Description 09/10/2005 Outpatient Historical [facility] Adriana Matamoros MD [address] [place] [address] LAT POPLITEAL NERVE LES (Primary Dx) Social History Tobacco Use Types Packs/Day Years Used Date Smoking Tobacco: Never Assessed Sex and Gender Information Value Date Recorded Sex Assigned at Not on file Legal Sex Male 3:48 AM DIRECTOR ADVANCED Gender Identity Not on file Sexual Orientation Not on file documented as of this encounter Plan of Treatment Not on file documented as of this encounter Visit Diagnoses Diagnosis Lesion of lateral popliteal nerve- Primary documented in this encounter Care Teams Poultry Inseminator Relationship Specialty Start Date End Date Adriana Matamoros MD [address] [place] [id number] PCP - General 08/21/06 documented as of this encounter
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
--- OUTSIDE RECORDS SUMMARY | 2025-03-14 12:31 | XMS_ITS | Clinical Summary ---
Author Organization [facility] GENERAL SURGERY Address [address] [address] Phone Care Team Providers Care Honey Producer Name Role Phone Amy Ojeda APRN, DENTAL OFFICE MANAGER Unavailable Simón Tate MD Primary Care Provider [phone] Allergies Active Allergy Reactions Criticality Noted Date [...] e Active Problems No known active problems Encounters Date Type Department Care Team Description 03/[facility] [address] [place] [address] Amy Ojeda APRN, CNP 03/04/2025 [facility] [address] [place] [address] Amy Ojeda APRN, ILEANA Request for Records from Last 3 Months Family History Medical [...] Comments Blood Pressure 132/78 10/29/2024 10:05 AM PAPER MAKING MACHINE OPERATOR Pulse 52 10/29/2024 10:05 AM PAPER MAKING MACHINE OPERATOR Temperature 36.6 C (97.8 F) 10/29/2024 10:05 AM PAPER MAKING MACHINE OPERATOR Respiratory Rate 16 10/29/2024 10:05 AM PAPER MAKING MACHINE OPERATOR Oxygen Saturation 99% 10/29/2024 10:05 AM PAPER MAKING MACHINE OPERATOR Inhaled Oxygen Concentration - - Weight 94.8 kg (209 lb) 10/29/2024 10:05 AM PAPER MAKING MACHINE OPERATOR Height 167.6 cm (5' 6) 10/29/2024 10:05 AM PAPER MAKING MACHINE OPERATOR Body Mass Index 33.73 10/29/2024 10:05 AM PAPER MAKING MACHINE OPERATOR Plan of Treatment Health Maintenance Due Date [...] topic Insurance MEDICARE C E[place] Care Teams Honey Producer Relationship Specialty Start Date End Date Simón Tate MD [address] [place] [address] PCP - General Family Medicine 02/17/24 Amy Ojeda APRN, DENTAL OFFICE MANAGER [address] [place] [address] Nurse Practitioner Advanced Practice Nurse 12/02/23
--- OUTSIDE RECORDS SUMMARY | 2025-03-14 12:31 | XMS_ITS | Encounter Summary ---
Author Organization [employer] [facility] Address [address] [place] [address] Care Team Providers Care Attendant Coin Operated Laundry Name Role Phone Adriana Matamoros MD Primary Care Provider [phone] Encounter Details Date Type Department Care Team (Latest Contact Info) Description 08/21/2006 Outpatient Historical [facility] Percy Villanueva MD NO ADDRESS ON FILE Hematuria (Primary Dx) Social History Tobacco Use Types Packs/Day Years Used Date Smoking Tobacco: Never Assessed Sex and Gender Information Value Date Recorded Sex Assigned at Not on file Legal Sex Male 3:48 AM SEASONER HAND Gender Identity Not on file Sexual Orientation Not on file documented as of this encounter Plan of Treatment Not on file documented as of this encounter Visit Diagnoses Diagnosis Hematuria- Primary documented in this encounter Care Teams Attendant Coin Operated Laundry Relationship Specialty Start Date End Date Adriana Matamoros MD [address] [place] [address] PCP - General 08/21/06 documented as of this encounter
--- OUTSIDE RECORDS SUMMARY | 2025-03-14 12:31 | XMS_ITS | Encounter Summary ---
Author Organization [employer] Address [address] [place] [address] Care Team Providers Care Evp Strategy Name Role Phone Adriana Matamoros MD Primary Care Provider [phone] Encounter Details Date Type Department Care Team [...] on file Legal Sex Male 3:48 AM CENTRIFUGAL DRIER OPERATOR Gender Identity Not on file Sexual Orientation Not on file documented as of this encounter Plan of Treatment Not on file documented as of this encounter Procedures Procedure Name Priority Date/Time Associated Diagnosis Comments CT ABDOMEN PELVIS WO CONTRAST Routine 10/06/2007 3:24 PM CENTRIFUGAL DRIER OPERATOR documented in this encounter Results * CT ABDOMEN PELVIS WO CONTRAST (10/06/2007 3:24 PM CENTRIFUGAL DRIER OPERATOR) Anatomical Region Laterality Modality Abdomen Other 10/06/2007 3:24 PM CENTRIFUGAL DRIER OPERATOR Narrative 10/06/2007 3:53 PM CENTRIFUGAL DRIER OPERATOR [address] [address] Admit Date: 10/06/2007 TRISTA HENYR Mary Sex: M Admit Prov: NASREEN VILLANUEVA Date: 1955 Primary Care Prov: CMRN: [id number] Room: [facility] SSN: [id number] IMAGING SERVICES Ordering Prov: N/A Accession Number: [id number] Interpretation CT abdomen and pelvis without contrast [...] 15:53 Procedure Note Annette Orlando - 10/07/2007 [facility] [address] [place], [place] [address] Admit Date: 10/06/2007 HENRY PINO Sex: M Admit Prov: NASREEN VILLANUEVA Date: 1955 Primary Care Prov: CMRN: [id number] Room: [facility] SSN: [id number] IMAGING SERVICES Ordering Prov: N/A Interpretation CT [...] ureter documented in this encounter Care Teams Evp Strategy Relationship Specialty Start Date End Date Adriana Matamoros MD [address] [place] [address] PCP - General 08/21/06 documented as of this encounter
--- OUTSIDE RECORDS SUMMARY | 2025-03-14 12:31 | XMS_ITS | Encounter Summary ---
Author Organization [facility] Address [address] [place] [address] Care Team Providers Care Arch Pad Cementer Name Role Phone Adriana Matamoros MD Primary Care Provider [phone] Encounter Details Date Type Department Care Team (Latest Contact Info) Description 10/17/[address] [facility] Villanueva, Percy Reza MD NO ADDRESS ON FILE Abn Findings- Organs (Primary Dx) Social History Tobacco Use Types Packs/Day Years Used Date Smoking Tobacco: Never Assessed Sex and Gender Information Value Date Recorded Sex Assigned at Not on file Legal Sex Male 3:48 AM LINE INSTALLER Gender Identity Not on file Sexual Orientation Not on file documented as of this encounter Plan of Treatment Not on file documented as of this encounter Visit Diagnoses Diagnosis Nonspecific (abnormal) findings on radiological and other examination of genitourinary organs- Primary documented in this encounter Care Teams Arch Pad Cementer Relationship Specialty Start Date End Date Adriana Matamoros MD [address] [place] [address] PCP - General 08/21/06 documented as of this encounter
--- OUTSIDE RECORDS SUMMARY | 2025-03-14 12:31 | XMS_ITS | Encounter Summary ---
Author Organization [employer] [facility] Address [address] [place] [address] Care Team Providers Care Specialist Employee Labor Relations Name Role Phone Adriana Matamoros MD Primary Care Provider [phone] Encounter Details Date Type Department Care Team (Late st Contact Info) Description 09/10/2005 Outpatient Historical [facility] [address] [place] [address] Adriana Matamoros MD [address] [place] [address] Social History Tobacco Use Types Packs/Day Years Used Date Smoking Tobacco: Never Assessed Sex and Gender Information Value Date Recorded Sex Assigned at Not on file Legal Sex Male 3:48 AM LEAD PYTHON DEVELOPER Gender Identity Not on file Sexual Orientation Not on file documented as of this encounter Plan of Treatment Not on file documented as of this encounter Visit Diagnoses Not on filedocumented in this encounter Care Teams Specialist Employee Labor Relations Relationship Specialty Start Date End Date Adriana Matamoros MD [address] [place] [address] PCP - General 08/21/06 documented as of this encounter
--- OUTSIDE RECORDS SUMMARY | 2025-03-14 12:31 | XMS_ITS | Encounter Summary ---
Author Organization [employer] Address [address] [place] [address] Care Team Providers Care Director Of Social Services Name Role Phone Adriana Matamoros MD Primary Care Provider [phone] Encounter Details Date Type Department Care Team (Latest Contact Info) Description 10/19/2004 Inpatient Historical [facility] PATIENT IN A BED Adriana Matamoros MD [address] [place] [address] REHABILITATION PROC NEC (Primary Dx) Social History Tobacco Use Types Packs/Day Years Used Date Smoking Tobacco: Never Assessed Sex and Gender Information Value Date Recorded Sex Assigned at Not on file Legal Sex Male 3:48 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 Gender Identity Not on file Sexual Orientation Not on file documented as of this encounter Plan of Treatment Not on file documented as of this encounter Procedures Procedure Name Priority Date/Time Associated Diagnosis Comments PROTIME-INR Routine 11/18/2004 4:30 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 PROTIME-INR Routine 11/16/2004 5:05 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 CBC WITH DIFFERENTIAL Routine 11/15/2004 5:37 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 CBC WITH DIFFERENTIAL Routine 11/15/2004 5:37 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 BASIC METABOLIC PANEL Routine 11/15/2004 5:37 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 CBC WITH DIFFERENTIAL Routine 11/07/2004 5:00 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 CBC WITH DIFFERENTIAL Routine 11/07/2004 5:00 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 BASIC METABOLIC PANEL Routine 11/07/2004 5:00 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 CBC WITH DIFFERENTIAL Routine 10/29/2004 4:26 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 CBC WITH DIFFERENTIAL Routine 10/29/2004 4:26 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 BASIC METABOLIC PANEL Routine 10/29/2004 4:26 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 OCCULT BLOOD GUAIAC DIAGNOSTIC Routine 10/27/2004 9:33 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 OCCULT BLOOD GUAIAC DIAGNOSTIC Routine 10/26/2004 5:53 PM SMART ENERGY SPECIALIST HEMOGLOBIN AND HEMATOCRIT Routine 10/25/2004 11:30 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 IRON, TIBC, AND PERCENT SATURATION Routine 10/25/2004 11:30 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 FOLATE RBC AND HEMATOCRIT Routine 10/25/2004 11:30 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 VITAMIN B12 LEVEL Routine 10/25/2004 11: 30 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 OCCULT BLOOD GUAIAC DIAGNOSTIC Routine 10/24/2004 10:30 PM SMART ENERGY SPECIALIST CBC WITH DIFFERENTIAL Routine 10/24/2004 4:40 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 CBC WITH DIFFERENTIAL Routine 10/24/2004 4:40 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 CBC WITH DIFFERENTIAL Routine 10/23/2004 5:00 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 CBC WITH DIFFERENTIAL Routine 10/23/2004 5:00 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 BASIC METABOLIC PANEL Routine 10/23/2004 5:00 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 CBC WITH DIFFERENTIAL Routine 10/19/2004 4:00 PM SMART ENERGY SPECIALIST CBC WITH DIFFERENTIAL Routine 10/19/2004 4:00 PM SMART ENERGY SPECIALIST C-REACTIVE PROTEIN Routine 10/19/2004 4: 00 PM SMART ENERGY SPECIALIST COMPREHENSIVE METABOLIC PANEL Routine 10/19/2004 4:00 PM SMART ENERGY SPECIALIST URINALYSIS W/REFLEX MICROSCOPIC Routine 10/19/2004 2:32 PM SMART ENERGY SPECIALIST documented in this encounter Results * (ABNORMAL) PROTIME-INR (11/18/2004 4:30 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) PROTIME 16.4(H) 12.9 - 15.7 Seconds INTERFACE [...] have not been established. 11/18/2004 4:30 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 us Adriana Matamoros MD HEMATOLOGY ORDERABLES Final R esult INTERFACE SYSTEM Refer to clinic/hospital department * PROTIME-INR (11/16/2004 5:05 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) PROTIME 14.8 12.9 - 15.7 Seconds INTERFACE [...] have not been established. 11/16/2004 5:05 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 Adriana Matamoros MD HEMATOLOGY ORDERABLES Final R psychiatric hospital Performing Organization Address [facility] Phone Number INTERFACE SYSTEM Refer to clinic/hospital department * CBC WITH DIFFERENTIAL (11/15/2004 5:37 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) NEUTROPHILS 68 45 - 70 % INTERFAC [...] 0.20 K/uL INTERFACE SYSTEM 11/15/2004 5:37 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 Adriana Matamoros MD HEMATOLOGY ORDERABLES Final R psychiatric hospital Performing Organization Address [facility] Phone Number INTERFACE SYSTEM Refer to clinic/hospital department * (ABNORMAL) CBC WITH DIFFERENTIAL (11/15/2004 5:37 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) WBC 6.3 4.0 - 9.8 K/uL INTERFACE [...] 12.4 fL INTERFACE SYSTEM 11/15/2004 5:37 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 Adriana Matamoros MD HEMATOLOGY ORDERABLES Final R esult Performing Organization Address [facility] de Phone Number INTERFACE SYSTEM Refer to clinic/hospital department * BASIC METABOLIC PANEL (11/15/2004 5:37 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) GLUCOSE 105 65 - 109 mg/dL INTERFACE [...] 30 mmol/L INTERFACE SYSTEM 11/15/2004 5:37 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 Adriana Matamoros MD CHEMISTRY ORDERABLES Final Re sult Performing Organization Address [facility] Phone Number INTERFACE SYSTEM Refer to clinic/hospital department * CBC WITH DIFFERENTIAL (11/07/2004 5:00 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) NEUTROPHILS 56 45 - 70 % INTERFAC [...] 0.20 K/uL INTERFACE SYSTEM 11/07/2004 5:00 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 Adriana Matamoros MD HEMATOLOGY ORDERABLES Final R esult Performing Organization Address [facility] Phone Number INTERFACE SYSTEM Refer to clinic/hospital department * (ABNORMAL) CBC WITH DIFFERENTIAL (11/07/2004 5:00 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) WBC 4.3 4.0 - 9.8 K/uL INTERFACE [...] 12.4 fL INTERFACE SYSTEM 11/07/2004 5:00 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 Adriana Matamoros MD HEMATOLOGY ORDERABLES Final R esult Performing Organization Address [facility] Phone Number INTERFACE SYSTEM Refer to clinic/hospital department * BASIC METABOLIC PANEL (11/07/2004 5:00 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) GLUCOSE 96 65 - 109 mg/dL INTERFACE [...] 30 mmol/L INTERFACE SYSTEM 11/07/2004 5:00 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 us Adriana Matamoros MD CHEMISTRY ORDERABLES Final Re sult Performing Organization Address [facility] Phone Number INTERFACE SYSTEM Refer to clinic/hospital department * CBC WITH DIFFERENTIAL (10/29/2004 4:26 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) Pathologist [facility] NEUTROPHILS 65 45 - 70 % INTERFAC [...] 0.20 K/uL INTERFACE SYSTEM 10/29/2004 4:26 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 us Adriana Matamoros MD HEMATOLOGY ORDERABLES Final R esult Performing Organization Address [facility] Phone Number INTERFACE SYSTEM Refer to clinic/hospital department * (ABNORMAL) CBC WITH DIFFERENTIAL (10/29/2004 4:26 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) Pathologist [facility] WBC 6.5 4.0 - 9.8 K/uL INTERFACE [...] 12.4 fL INTERFACE SYSTEM 10/29/2004 4:26 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 us Adriana Matamoros MD HEMATOLOGY ORDERABLES Final R esult Performing Organization Address [facility] de Phone Number INTERFACE SYSTEM Refer to clinic/hospital department * BASIC METABOLIC PANEL (10/29/2004 4:26 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) GLUCOSE 97 65 - 109 mg/dL INTERFACE [...] 30 mmol/L INTERFACE SYSTEM 10/29/2004 4:26 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 Result Vince Matamoros MD CHEMISTRY ORDERABLES Final Re sult Performing Organization Address [facility] Phone Number INTERFACE SYSTEM Refer to clinic/hospital department * OCCULT BLOOD, STOOL (10/27/2004 9:33 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) OCCULT BLOOD, STOOL Negative Negative INTERFACE SYSTEM 10/27/2004 9:33 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 Result Vince Matamoros MD BODY FLUIDS AND STOOLS Final Result Performing Organization Address [facility] Phone Number INTERFACE SYSTEM Refer to clinic/hospital department * OCCULT BLOOD, STOOL (10/26/2004 5:53 PM SMART ENERGY SPECIALIST) OCCULT BLOOD, STOOL Negative Negative INTERFACE SYSTEM 10/26/2004 5:53 PM SMART ENERGY SPECIALIST Result Vince Matamoros MD BODY FLUIDS AND STOOLS Final Result Performing Organization Address [facility] Phone Number INTERFACE SYSTEM Refer to clinic/hospital department * (ABNORMAL) FOLATE RBC AND HEMATOCRIT (10/25/2004 11:30 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) HEMATOCRIT, FOLATE 30.3(L) 40.0 - 48.0 % INTERFACE SYSTEM RBC FOLATE 1095 >=341 ng/mL INTERFACE SYSTEM 10/25/2004 11:3 0 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 Result Vince Matamoros MD CHEMISTRY ORDERABLES Final Re sult Performing Organization Address [facility] Phone Number INTERFACE SYSTEM Refer to clinic/hospital department * VITAMIN B12 (10/25/2004 11:30 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) VITAMIN B12 763 243 - 894 pg/mL INTERFACE SYSTEM Comment: It has been reported that between 5 to 10% of patients with values between 200 and 400 pg/mL may experience neuropsychiatric and hematologic abnormalities due to occult B12 deficiency. Less than 1% of patients with values above 400 pg/mL will have symptoms. 10/25/2004 11:3 0 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 Adriana Matamoros MD CHEMISTRY ORDERABLES Final Re sult Performing Organization Address [facility] Phone [facility] INTERFACE SYSTEM Refer to clinic/hospital department * (ABNORMAL) HEMOGLOBIN AND HEMATOCRIT (10/25/2004 11:30 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) HEMOGLOBIN 9.3(L) 13.6 - 16.5 g/dL INTERFACE SYSTEM HEMATOCRIT 30.3(L) 40.0 - 48.0 % INTERFACE SYSTEM 10/25/2004 11:3 0 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 Adriana Matamoros MD HEMATOLOGY ORDERABLES Final R esult Performing Organization Address [facility] Phone Number INTERFACE SYSTEM Refer to clinic/hospital department * (ABNORMAL) IRON AND TIBC (10/25/2004 11:30 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) IRON 50 45 - 160 ug/dL INTERFACE SYSTEM IRON % SATURATION 17(L) 20 - 50 % INTERFACE SYSTEM TIBC 286 250 - 450 ug/dL INTERFACE SYSTEM 10/25/2004 11:3 0 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 Adriana Matamoros MD CHEMISTRY ORDERABLES Final Re sult Performing Organization Address [facility] Phone Number INTERFACE SYSTEM Refer to clinic/hospital department * OCCULT BLOOD, STOOL (10/24/2004 10:30 PM SMART ENERGY SPECIALIST) OCCULT BLOOD, STOOL Negative Negative INTERFACE SYSTEM 10/24/2004 10:3 0 PM SMART ENERGY SPECIALIST Adriana Matamoros MD BODY FLUIDS AND STOOLS Final Result Performing Organization Address [facility] de Phone Number INTERFACE SYSTEM Refer to clinic/hospital department * (ABNORMAL) CBC WITH DIFFERENTIAL (10/24/2004 4:40 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) NEUTROPHIL ABSOLUTE 6.69 1.90 - 7.00 K/uL [...] Slight INTERFA CE SYSTEM 10/24/2004 4:40 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 Adriana Matamoros MD HEMATOLOGY ORDERABLES Final R esult Performing Organization Address [facility] Phone Number INTERFACE SYSTEM Refer to clinic/hospital department * (ABNORMAL) CBC WITH DIFFERENTIAL (10/24/2004 4:40 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) WBC 7.6 4.0 - 9.8 K/uL INTERFACE [...] 12.4 fL INTERFACE SYSTEM 10/24/2004 4:40 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 Adriana Matamoros MD HEMATOLOGY ORDERABLES Final R esult Performing Organization Address [facility] de Phone Number INTERFACE SYSTEM Refer to clinic/hospital department * (ABNORMAL) CBC WITH DIFFERENTIAL (10/23/2004 5:00 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) NEUTROPHILS 74(H) 45 - 70 % INTERFAC [...] 0.20 K/uL INTERFACE SYSTEM 10/23/2004 5:00 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 Adriana Matamoros MD HEMATOLOGY ORDERABLES Final R psychiatric hospital Performing Organization Address [facility] de Phone Number INTERFACE SYSTEM Refer to clinic/hospital department * (ABNORMAL) CBC WITH DIFFERENTIAL (10/23/2004 5:00 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) WBC 7.8 4.0 - 9.8 K/uL INTERFACE [...] 12.4 fL INTERFACE SYSTEM 10/23/2004 5:00 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 Adriana Matamoros MD HEMATOLOGY ORDERABLES Final R esult Performing Organization Address [facility] de Phone Number INTERFACE SYSTEM Refer to clinic/hospital department * (ABNORMAL) BASIC METABOLIC PANEL (10/23/2004 5:00 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) GLUCOSE 94 65 - 109 mg/dL INTERFACE [...] 30 mmol/L INTERFACE SYSTEM 10/23/2004 5:00 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 Adriana Matamoros MD CHEMISTRY ORDERABLES Final Re sult Performing Organization Address [facility] Phone Number INTERFACE SYSTEM Refer to clinic/hospital department * (ABNORMAL) CBC WITH DIFFERENTIAL (10/19/2004 4:00 PM SMART ENERGY SPECIALIST) NEUTROPHILS 85(H) 45 - 70 % INTERFAC [...] 0.20 K/uL INTERFACE SYSTEM 10/19/2004 4:00 PM SMART ENERGY SPECIALIST Adriana Matamoros MD HEMATOLOGY ORDERABLES Final R esult Performing Organization Address City/[facility]/ZIP Co de Phone Number INTERFACE SYSTEM Refer to clinic/hospital department * (ABNORMAL) CBC WITH DIFFERENTIAL (10/19/2004 4:00 PM SMART ENERGY SPECIALIST) WBC 12.7(H) 4.0 - 9.8 K/uL INTERFACE [...] 12.4 fL INTERFACE SYSTEM 10/19/2004 4:00 PM SMART ENERGY SPECIALIST Adriana Matamoros MD HEMATOLOGY ORDERABLES Final R esult Performing Organization Address [facility] Co de Phone Number INTERFACE SYSTEM Refer to clinic/hospital department * (ABNORMAL) C-REACTIVE PROTEIN (10/19/2004 4:00 PM SMART ENERGY SPECIALIST) CRP 9.8(H) 0.0 - 0.8 mg/dL INTERFACE SYSTEM 10/19/2004 4:00 PM SMART ENERGY SPECIALIST Result [facility] us Adriana Matamoros MD CHEMISTRY ORDERABLES Final Re sult Performing Organization Address City/[facility] Co de Phone Number INTERFACE SYSTEM Refer to clinic/hospital department * (ABNORMAL) COMPREHENSIVE METABOLIC PANEL (10/19/2004 4:00 PM SMART ENERGY SPECIALIST) GLUCOSE 113(H) 65 - 109 mg/dL INTERFACE [...] 30 mmol/L INTERFACE SYSTEM 10/19/2004 4:00 PM SMART ENERGY SPECIALIST Adriana Matamoros MD CHEMISTRY ORDERABLES Final Re sult Performing Organization Address [facility] Co de Phone Number INTERFACE SYSTEM Refer to clinic/hospital department * (ABNORMAL) URINALYSIS (10/19/2004 2:32 PM SMART ENERGY SPECIALIST) COLOR UA Yellow INTERFACE SYSTEM CLARITY UA [...] Few /HPF INTERFACE SYSTEM 10/19/2004 2:32 PM SMART ENERGY SPECIALIST Adriana Matamoros MD URINE ORDERABLES Final Result Performing Organization Address [facility]/ZIP Co de Phone Number INTERFACE SYSTEM Refer to clinic/hospital department documented in this encounter Visit Diagnoses Diagnosis Other specified rehabilitation procedure(V57.89)- Primary Other specified rehabilitation procedure documented in this encounter Care Teams Director Of Social Services Relationship Specialty Start Date End Date Adriana Matamoros MD [address] [place] [address] PCP - General 08/21/06 documented as of this encounter
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
--- OUTSIDE RECORDS SUMMARY | 2025-03-14 12:31 | XMS_ITS | Encounter Summary ---
Author Organization [facility] Address [address] [place] [address] Care Team Providers Care Annealer Helper Name Role Phone Adriana Matamoros MD Primary Care Provider [phone] Encounter Details Date Type Department Care Team (Late st Contact Info) Description 09/16/2006 Outpatient Historical [facility] GaPercy seth MD NO ADDRESS ON FILE Calculus of Kidney (Primary Dx) Social History Tobacco Use Types Packs/Day Years Used Date Smoking Tobacco: Never Assessed Sex and Gender Information Value Date Recorded Sex Assigned at Not on file Legal Sex Male 3:48 AM POLYSOMNOGRAPHIC TECHNOLOGIST Gender Identity Not on file Sexual Orientation Not on file documented as of this encounter Plan of Treatment Not on file documented as of this encounter Visit Diagnoses Diagnosis Calculus of kidney- Primary documented in this encounter Care Teams Annealer Helper Relationship Specialty Start Date End Date Adriana Matamoros MD [address] [place] [id number] PCP - General 08/21/06 documented as of this encounter
--- OUTSIDE RECORDS SUMMARY | 2025-03-14 12:31 | XMS_ITS | Clinical Summary ---
Author Organization [facility] Address [address] [facility] [place] [address] Care Team Providers Care Radio Repairman Name Role Phone Gee Mckeon MD Primary Care Provider [phone] Source Comments [facility],non-owned Affiliates and Associated Physician Practices is amultiple site organization consisting of ambulatory clinics and hospital sitesin [place], [place], [place] and [place]. This disclosure is being madepursuant to the Care Everywhere program and may not contain all information available regarding this patient. Last updated 18.[facility] Allergies Active Allergy Reactions Criticality Noted Date [...] season) 2024 DEPRESSION SCREENING 09/08/2024 INFLUENZA VACCINE (#1) 2025 Respiratory Syncytial Virus (RSV) Vaccine Pt: [...] this topic Insurance SERVICES [employer] Care Teams Radio Repairman Relationship Specialty Start Date End Date Gee Mckeon MD [address] [place] [address] [address] [place] [id number] PCP - General Internal Medicine 02/06/22
--- OUTSIDE RECORDS SUMMARY | 2025-03-14 12:31 | XMS_ITS | Encounter Summary ---
Author Organization [facility] Address 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
--- OUTSIDE RECORDS SUMMARY | 2025-03-14 12:31 | XMS_ITS | Encounter Summary ---
Author Organization [facility] Address 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
--- OUTSIDE RECORDS SUMMARY | 2025-03-14 12:31 | XMS_ITS | Encounter Summary ---
Author Organization [facility] Address [address] [place] [address] Care Team Providers Care Speech And Hearing Clinic Director Name Role Phone Adriana Matamoros MD Primary Care Provider [phone] Encounter Details Date Type Department Care Team (Latest Contact Info) Description 12/19/2006 Outpatient Historical HIS [facility] JOSE MANUEL Villanueva, Percy Reza MD NO ADDRESS ON FILE Calculus of Kidney (Primary Dx) Social History Tobacco Use Types Packs/Day Years Used Date Smoking Tobacco: Never Assessed Sex and Gender Information Value Date Recorded Sex Assigned at Not on file Legal Sex Male 3:48 AM QUANTITATIVE EQUITY HEAD Gender Identity Not on file Sexual Orientation Not on file documented as of this encounter Plan of Treatment Not on file documented as of this encounter Visit Diagnoses Diagnosis Calculus of kidney- Primary documented in this encounter Care Teams Speech And Hearing Clinic Director Relationship Specialty Start Date End Date Adriana Matamoros MD [address] [place] [phone] PCP - General 08/21/06 documented as of this encounter
--- OUTSIDE RECORDS SUMMARY | 2025-03-14 12:31 | XMS_ITS | Encounter Summary ---
Author Organization [facility] Address [address] [place] [address] Care Team Providers Care Supervisor Road Administrator Name Role Phone Adriana Matamoros MD Primary Care Provider [phone] Encounter Details Date Type Department Care Team (Late st Contact Info) Description 10/19/[address] [facility] [address] 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
--- OUTSIDE RECORDS SUMMARY | 2025-03-14 12:31 | XMS_ITS ---
Author Organization [facility] Address [address] [place] [address] [address] [place] [address] Care Team Providers Care Tassel Clipper Name Role Phone Shahid Drake Primary Care Provider UnaRoss Bridges Unavailable [phone] REASON FOR VISIT Bloating Medications Medication SIG (Take, Route, Frequency, Duration) Notes Start Date End Date Status Omeprazole Active Isosorbide Mononitrate Active Atorvastatin Calcium Active Gabapentin Active Levothyroxine Sodium Active OTC/Vitamins ASA, Vit B12, Vit C Active Procedures Procedure Date Ordered Date Performed Result Body Sit e SIBO Breath Test 03/14/2025 N/A Encounters Encounter Location Date Provider Diagnosis [facility], [address] [place] [address] 03/14/2025 Ross Monzon Abdominal bloating R14.0 Assessments Encounter Date Diagnosis (ICD Code) Assessment Notes Treatment Notes Treatment Clinical Notes Section Notes 03/14/2025 Abdominal bloating (ICD-10 - R14.0) Plan Of Treatment Pending Test Test Name Order Date SIBO Breath Test 03/14/2025 Progress Notes * KAIAHenry GIRON LDOB:1955 (69 yo M)Acc No.[id number]:03/14/2025 Patient: Henry ZURITA Provider: Nikolai Monzon M.D. :1955 A ge:69 Y S ex:Male Date:03/14/2025 Address:[address] [place], [place] [id number] Pcp:Shahid Drake Subjective: * Chief Complaints: * B loating * Medical History: * Surgical History: * Hospitalization/Major Diagno stic Procedure: * Medications: T akingOmeprazole Isosorbide Mononitrate Levothyroxine Sodium Atorvastatin Calcium Gabapentin OTC/Vitamins , Notes to Pharmacist: ASA, Vit B12, Vit CTaking Omeprazole Taking Isosorbide Mononitrate Taking Levothyroxine Sodium Taking Atorvastatin Calcium Taking Gabapentin Taking OTC/Vitamins , Notes to Pharmacist: ASA, Vit B12, Vit C Objective: * Vitals: Assessment: * Assessment: 1. A bdominal bloating - R14.0 (Primary) Plan: * Treatment: * Procedure Codes: 9 1065 BREATH HYDROGEN TEST * Images: * Sign off status: Completed true * Provider: Nikolai Monzon M.D. Date: 03/14/2025 Generated for Shaunna caruso/Cherie/Terrell on: 03/14/2025 12:31 PM CDT
--- OUTSIDE RECORDS SUMMARY | 2025-03-14 12:31 | XMS_ITS | Patient Health Record ---
Author Organization [facility] Address [address] [facility] [place]. [address] [place] [address] Care Team Providers Care Kitchen Food Assembler Name Role Phone Shahid Drake Primary Care Provider Israel KingewsRoss Unavailable [phone] Allergies Allergen (clinical drug ingredient) Drug/Non Drug Allergy documented on EMR Reaction Allergy Type Onset Date Status Substance with sulfonamide structure and antibacterial mechanism of action (substance) Sulfa Antibiotics hives Drug Allergy active Reason For Referral No Information Medications Medication SIG (Take, Route, Frequency, Duration) Notes Start Date End Date Status Omeprazole Active Isosorbide Mononitrate Active OTC/Vitamins ASA, Vit B12, Vit C Active Atorvastatin Calcium Active Gabapentin Active Levothyroxine Sodium Active Immunizations Vaccine Route Administration Date Status Comme nts Pneumococcal polysaccharide PPV23 Unknown 03/08/2023 Ad ministered Tdap Unknown 03/08/2020 Administered Social History Tobacco Use: Social History Observation Description Date Details (start date - stop date) Never Smoker NA - NA Tobacco Control (Standard) Question Answer Notes Tobacco use: Nonsmoker Problems Problem Type SNOMED Code ICD Code Onset Dates Problem Status W/U Status Risk Notes Problem Gastroesophageal reflux disease (047186383) GERD (gastroesopha geal reflux disease) (K21.9) Active confirmed Problem Abdominal bloating (615049916) Abdominal bloating (R14.0) Active confirmed Problem Non-infective enteritis and colitis (885065157) Frequent stools (K52.9) Active confirmed Vital Signs Height 66 in 03/04/2025 Weight 208 lbs 03/04/2025 BMI 33.57 kg/m2 03/04/2025 Procedures Procedure Date Ordered Date Performed Result Body Sit e Initiate SIBO 03/04/2025 N/A SIBO Breath Test 03/14/2025 N/A Encounters Encounter Location Date Provider Diagnosis [address] [place] [address] 03/04/2025 Ross Monzon Abdominal bloating R14.0 ; GERD (gastroesophageal reflux disease) K21.9 and Frequent stools K52.[address] [place] [address] 03/14/2025 Ross Monzon Abdominal bloating R14.[address] [place] [address] 03/14/2025 Ross Monzon [address] [place] [address] 12/20/2024 Ross Monzon Assessments Encounter Date Diagnosis (ICD Code) Assessment Notes Treatment Notes Treatment Clinical Notes Section Notes 03/04/2025 GERD (gastroesopha geal reflux disease) (ICD-10 - K21.9) Continue omeprazole. He may be having increased reflux symptoms due to increased abdominal pressure from bacterial overgrowth. Hopefully this will improve. If not, we may want to consider upper endoscopy. The patient has having ongoing problems with frequent bowel movements, bloating, and reflux when the bloating is worse. 03/04/2025 Abdominal bloating (ICD-10 - R14.0) Recommend scheduling patient for hydrogen-methane breath testing to rule out small intestinal bacterial overgrowth. Further recommendations will be pending these results. The patient has having ongoing problems with frequent bowel movements, bloating, and reflux when the bloating is worse. 03/14/2025 Abdominal bloating (ICD-10 - R14.0) 03/04/2025 Frequent stools (ICD-10 - K52.9) This certainly could be related to bacterial overgrowth. If bacterial overgrowth testing is negative, we will pursue further evaluation and treatment. The patient has having ongoing problems with frequent bowel movements, bloating, and reflux when the bloating is worse. Plan Of Treatment Pending Test Test Name Order Date SIBO Breath Test 03/14/2025 Initiate SIBO 03/04/2025 Insurance Providers Payer Name Payer Address Payer Phone Subscriber Number Group Number Insured Name Patient Relationship to Insured Coverage Start Date Coverage End Date [employer] PPO [address] [place] [id number] Henry Pino Self - patient is the insured Medical (General) History Medical History History ICD Code GERD Heart Disease/Stents Thyroid Disease Surgical History Surgery Date(Month/Year) Colonoscopy (Outside Provider) 2023 Hernia Repair Vasectomy Angioplasty / Cardiac Stent Joint Replacement Thyroid Surgery Hospitalization History Reason Date(Month/Year) Thyroid Disease Injury
--- OUTSIDE RECORDS SUMMARY | 2025-03-14 12:31 | XMS_ITS | Encounter Summary ---
Author Organization [facility] Address [address] [place] [address] Care Team Providers Care V Block Saw Operator Name Role Phone Adriana Matamoros MD Primary Care Provider [phone] Encounter Details Date Type Department Care Team (Late st Contact Info) Description 10/10/2007 Outpatient Historical [facility] Nasreen Villanueva MD NO ADDRESS ON FILE Unspecified Disorder of Kidney and Ureter Social History Tobacco Use Types Packs/Day Years Used Date Smoking Tobacco: Never Assessed Sex and Gender Information Value Date Recorded Sex Assigned at Not on file Legal Sex Male 3:48 AM MASTER TAX ADVISOR Gender Identity Not on file Sexual Orientation Not on file documented as of this encounter Plan of Treatment Not on file documented as of this encounter Procedures Procedure Name Priority Date/Time Associated Diagnosis Comments US RETROPERITONEAL COMPLETE Routine 10/10/2007 10:33 AM MASTER TAX ADVISOR documented in this encounter Results * US RETROPERITONEAL COMPLETE (10/10/2007 10:33 AM MASTER TAX ADVISOR) Anatomical Region Laterality Modality Pelvis Other 10/10/2007 10:3 3 AM MASTER TAX ADVISOR Narrative 10/10/2007 3:31 PM MASTER TAX ADVISOR [address] [address] Admit Date: 10/10/2007 TRISTA HENRY Mary Sex: M Admit Prov: NASREEN VILLANUEVA Date: 1955 Primary Care Prov: CMRN: [id number] Room: [facility] SSN: [id number] IMAGING SERVICES Ordering Prov: N/A Accession Number: [id number] Interpretation RENAL ULTRASOUND, 10/10/2007 History: Renal insufficiency. [...] SMM Procedure Note Jeremy Browne - 10/10/2007 [address] [place], [place] [address] Admit Date: 10/10/2007 HENRY PINO Sex: M Admit Prov: NASREEN VILLANUEVA Date: 1955 Primary Care Prov: CMRN: [id number] Room: [facility] SSN: [id number] IMAGING SERVICES Ordering Prov: N/A Interpretation RENAL [...] ureter documented in this encounter Care Teams V Block Saw Operator Relationship Specialty Start Date End Date Adriana Matamoros MD [address] [place] [address] PCP - General 08/21/06 documented as of this encounter
--- OUTSIDE RECORDS SUMMARY | 2025-03-14 12:33 | XMS_ITS | Continuity of Care Document ---
Author Organization [facility] [place] [address] Care Team Providers Care Price Clerk Name Role Phone Adriana Matamoros MD Unavailable Unavailable Allergies, Adverse Reactions, Alerts Substance Reaction Status Criticality Sulfa (Sulfonamide Antibiotics) Active No Information Medications Medication Instructions Dosage Effective Dates (start - stop) Status Comments tramadol 50 mg tablet take 1 tablet by oral route every 6 hours as needed 50 MG - Active PANTOPRAZOLE SODIUM (unknown strength) Not Available - Active SYNTHROID (unknown strength) Not Available - Active Procedures Procedure Date OFFICE/OUTPATIENT VISIT NEW Advance Directives Directive Yes / No Effective Date File Name No Information Encounters Encounter Description Practice Location Reason(s) For Visit Diagnoses Date Provider Providers Copied on Encounter OFFICE/OUTPA TIENT VISIT [facility], [place], [address], [facility] Right foot dropClosed nondisplaced fracture of pelvis, unspecified part of pelvis, sequelaBilate ral low back pain with right-sided sciatica -[address]. [address], [place], [place], [id number] . tel:[phone] Family History Family Member Type Diagnosis Age At Onset No Information Payers Payer name Insurance type Covered constitution party ID Authoriza tiashu(s) Delfin Haynes E2 OT [id number] Social History Type Description Quantity Date Captured [...]
[2025-03-14 12:34] VITALS: BP 128/76; PULSE 62; RESP 20; TEMP 36.4; O2SAT 100
--- NOTE | 2025-03-14 12:57 | ED.SKABFB ---
HPI - Skin/Abscess/Foreign Bdy General Chief complaint: Skin/Abscess/Foreign Body Stated complaint: Rash Time Seen by Provider: 03/14/25 12:50 Source: patient, RN notes reviewed and old records reviewed Mode of arrival: ambulatory Limitations: no limitations History of Present Illness HPI narrative: 69-year-old male presents to the [facility] with red bumps to legs and left arm. States that he was clearing trauma but finds. Reports using his left over transit alone cream. Reports that is being very itchy. Symptoms x3 days Related Data Home Medications ?Medication ?Instructions ?Recorded ?Confirmed ?Last Taken ?Type aspirin 81 mg tablet,delayed 81 mg PO DAILY 09/23/19 11/19/24 Unknown History release (Kevin Low Dose Aspirin) atorvastatin 80 mg tablet 80 mg PO DAILY 09/23/19 11/19/24 Unknown History isosorbide mononitrate 30 mg 30 mg PO DAILY 09/23/19 11/19/24 Unknown History tablet,extended release 24 hr rivaroxaban 2.5 mg tablet (Xarelto) mg 11/19/24 Unknown History gabapentin 300 mg capsule mg 02/18/25 Unknown History levothyroxine 100 mcg tablet mcg 02/18/25 Unknown History omeprazole 40 mg capsule,delayed mg 02/18/25 Unknown History release Allergies Allergy/AdvReac Type Severity Reaction Status Date / Time Sulfa (Sulfonamide Allergy Unknown Unknown Verified 03/14/25 12:37 Antibiotics) Review of Systems Review of Systems: All systems reviewed & are unremarkable except as noted in HPI and below Constitutional: Constitutional: Reports no additional constitutional complaints Respiratory: Respiratory: Reports no additional respiratory complaints, Denies chest congestion, Denies cough and Denies dyspnea Musculoskeletal: Musculoskeletal: Reports no additional musculoskeletal complaints Integumentary/Breasts: Skin/Breast: Reports as per HPI PMFSH Social History Social History Smoking status: Never smoker Comments At the time of my signature, I reviewed and agree with the nursing past medical, surgical, social, and family history. There is no relevant family history pertinent to the patient complaint. Exam Const: General: cooperative, healthy appearing, comfortable, no acute distress, well developed, alert and well nourished Nutritional Appearance: well nourished Orientation/consciousness: patient oriented x3 Limitations: no limitations HENMT: Head: normal to inspection Eyes: General: appearance normal, both eyes and all related structures Alignment and Position: alignment normal Neck: Neck: normal visual inspection, full ROM, no lymphadenopathy and no meningeal signs Chest: Chest palpation & inspection: normal inspection of the chest Resp: Effort & Inspection: normal respiratory effort and able to speak in complete sentences Auscultation: clear to auscultation bilaterally, no crackles, no rales, no rhonchi and no wheezes Cardio: Rate: regular rate Skin: General skin exam: normal color and no rashes or lesions noted Other: multiple red raised bumps poor consistent insect bites over a dermatitis. Neuro: General: patient oriented x3, gait normal, moves all extremities and no meningeal signs Cognition (Neuro): normal cognition Speech: normal speech Gait exam (Neuro): Normal gait present Extrem: General: normal to inspection, full ROM, capillary refill normal and normal gait Psych: Appearance: grossly normal and well kempt Mental Status: mental status grossly normal Speech and movement: Normal speech and movement present and Clear speech present Affect: normal affect Attitude: cooperative Course Course Level of Care: Express Care Visit Vital Signs Vital signs: Vital Signs Temperature 97.6 F 03/14/25 12:34 Pulse Rate 62 03/14/25 12:34 Respiratory Rate 20 03/14/25 12:34 Blood Pressure 128/76 03/14/25 12:34 Pulse Oximetry 100 03/14/25 12:34 Oxygen Delivery Room Air 03/14/25 12:34 Temperature 97.6 F 03/14/25 12:34 Pulse Rate 62 03/14/25 12:34 Respiratory Rate 20 03/14/25 12:34 Blood Pressure 128/76 03/14/25 12:34 Pulse Oximetry 100 03/14/25 12:34 Oxygen Delivery Room Air 03/14/25 12:34 Reviewed MDM - Skin/Abscess/Foreign Bdy MDM Narrative Medical decision making narrative: Patient presents 3 day history of itchy red raised areas, blanchable. No cellulitic changes. Patient is nontoxic, vitals are stable. Patient appropriate for outpatient treatment with close follow Discharge instructions reviewed with patient, as well as provided in writing per nursing staff. The instructions also include specific and strict return/GO TO THE ER as well as f/u information. All questions have been answered, and the patient deny any further questions with discharge and discharge plan. Some parts of this dictation were generated by voice recognition software and may contain typographical and/or grammatical inaccuracies. Differential Diagnosis Differential diagnosis: Likely abscess of skin or subcutaneous tissue, urticaria, cellulitis, insect bites, impetigo and contact dermatitis Critical Care Time Critical Care Time Critical Care Time: No Discharge Plan Discharge Clinical Impression: Insect bites Patient Disposition: Home Condition: Stable Instructions: Antibiotic Form, Insect Bite or Sting (ED) Additional Instructions: The most important part of your care is follow up with Primary care provider. Take Benadryl 25-50 mg every 8 hours for itching Take Zyrtec every day Take Pepcid 20mg daily for 7 days Take the steroids startingToday, next dose will be in apply triamcinolone cream twice daily Avoid hot showers, Take cool showers. Hot showers will make rashes worse Apply cool compresses every 2-3 hours for 15 minutes Go to the ER for new or worsening symptoms such as shortness of breath. Patient Language: Lao Prescriptions: New prednisone 20 mg tablet 20 mg PO DAILY Qty: 5 0RF No Action atorvastatin 80 mg Tablet 80 mg PO DAILY isosorbide mononitrate 30 mg Tablet Extended Release 24 Hr 30 mg PO DAILY aspirin [Kevin Low Dose Aspirin] 81 mg Tablet,Delayed Release (Dr/Ec) 81 mg PO DAILY Xarelto 2.5 mg tablet omeprazole 40 mg capsule,delayed release(DR/EC) levothyroxine 100 mcg tablet gabapentin 300 mg capsule triamcinolone acetonide 0.1 % cream 1 applic topical BID Qty: 30 0RF Follow-up/Referrals: UNKNOWN,DOCTOR [Non-Staff] - Time of Disposition: 12:54
== END 2025-03-14 12:58 | disposition home or self-care (01) ==
PROVIDERS: Emergency Provider Nurse Practitioner
DX: S80.862A Insect bite (nonvenomous), left lower leg, initial encounter (principal); S80.861A Insect bite (nonvenomous), right lower leg, initial encounter; S40.862A Insect bite (nonvenomous) of left upper arm, initial encounter; W57.XXXA Bitten or stung by nonvenomous insect and other nonvenomous arthropods, initial encounter; I25.10 Atherosclerotic heart disease of native coronary artery without angina pectoris; I10 Essential (primary) hypertension; E78.00 Pure hypercholesterolemia, unspecified; K21.9 Gastro-esophageal reflux disease without esophagitis; E11.9 Type 2 diabetes mellitus without complications; E89.0 Postprocedural hypothyroidism; Z95.5 Presence of coronary angioplasty implant and graft; Z79.82 Long term (current) use of aspirin
CPT/HCPCS: 99213; G0463